=== PATIENT | male | born 1965 | race Two or more races ===

== ENCOUNTER 2020-07-08 07:40 | Outpatient (REF) | payer OTHER, SELFPAY ==
[2020-07-08 08:11] LABS: MANUAL DIFF FLAG NO
[2020-07-08 08:16] LABS: Basophils Absolute Auto 0.1 X10*3/uL (0.0-0.2); Basophils Percent Auto 1.2 % (0-2); Eosinophils Absolute Auto 0.1 X10*3/uL (0.0-0.4); Eosinophils Percent Auto 2.1 % (0-4); Hematocrit 48.1 % (42-52); Hemoglobin 16.3 g/dl (14.0-18.0); Imm Gran Abs Auto 0.01 X10*3/uL (0.00-0.03); Imm Gran Pct Auto 0.2 % (0.0-0.4); Lymphocytes Absolute Auto 2.5 X10*3/uL (1.2-4.9); Lymphocytes Percent Auto 44.3 % (20-40); Mean Corpuscular HGB Conc 33.9 g/dl (31.0-36.0); Mean Corpuscular Hemoglobin 30.8 pg (27.0-33.0); Mean Corpuscular Volume 90.8 fL (80-98); Mean Platelet Volume 9.8 fL (9.4-12.4); Monocytes Absolute Auto 0.6 X10*3/uL (0.1-1.2); Monocytes Percent Auto 9.6 % (2-11); Neutrophils Absolute Auto 2.5 X10*3/uL (2.0-8.3); Neutrophils Percent Auto 42.6 % (45-73); Platelet Count 276 X10*3/uL (160-400); Red Cell Distribution Width 12.1 % (11.0-16.0); White Blood Count 5.7 X10*3/uL (4.8-10.8)
[2020-07-08 08:26] LABS: Estimated Average Glucose 111 mg/dL; Hemoglobin A1c % 5.5 %
[2020-07-08 08:38] LABS: Alanine Aminotransferase 35 U/L (0-40); Albumin Level 4.7 g/dL (3.5-5.0); Alkaline Phosphatase 72 U/L (39-117); Anion Gap 10 (12-20); Aspartate Amino Transferase 33 U/L (5-37); Bilirubin Total 1.2 mg/dL (0.0-1.0); Blood Urea Nitrogen 15 mg/dL (9-16); Carbon Dioxide 29 mmol/L (22-29); Chloride 101 mmol/L (96-108); Cholesterol 137 mg/dL; Estimated Glomerular Filt Rate > 60; Glucose Random 104 mg/dL (60-115); HDL Cholesterol 43 mg/dL; LDL Cholesterol Calculated 83 mg/dl; Potassium 4.1 mmol/l (3.3-5.1); Sodium 136 mmol/L (135-145); Total Protein 7.3 g/dL (6.5-8.0); Triglycerides 55 mg/dL
[2020-07-08 08:58] LABS: Thyroid Stimulating Hormone 1.14 uIU/mL (0.32-4.0)
== END 2020-07-08 07:41 | disposition home or self-care (01) ==
LOC: HO.LAB 07:40
PROVIDERS: Visit Provider Internal Medicine
DX: E78.00 Pure hypercholesterolemia, unspecified (principal); I10 Essential (primary) hypertension; J30.89 Other allergic rhinitis; R73.01 Impaired fasting glucose
CPT/HCPCS: 36415; 80053; 80061; 83036; 84443; 85025

== ENCOUNTER 2020-09-20 10:20 | Outpatient (REF) | payer OTHER, SELFPAY | END 2020-09-20 10:21 | disposition home or self-care (01) | LOC: HO.LAB 10:20 | PROVIDERS: PCP Internal Medicine; Visit Provider Internal Medicine | DX: Z20.822 Contact with and (suspected) exposure to COVID-19 (principal) | CPT/HCPCS: 36415; C9803; U0003; U0005 ==

== ENCOUNTER 2020-12-13 06:26 | Outpatient (REF) | payer OTHER, SELFPAY ==
[2020-12-13 07:01] LABS: Basophils Absolute Auto 0.1 X10*3/uL (0.0-0.2); Basophils Percent Auto 1.4 % (0-2); Eosinophils Absolute Auto 0.2 X10*3/uL (0.0-0.4); Eosinophils Percent Auto 2.7 % (0-4); Hematocrit 45.9 % (42-52); Hemoglobin 15.1 g/dl (14.0-18.0); Imm Gran Abs Auto 0.01 X10*3/uL (0.00-0.03); Imm Gran Pct Auto 0.2 % (0.0-0.4); Lymphocytes Absolute Auto 2.5 X10*3/uL (1.2-4.9); Lymphocytes Percent Auto 44.5 % (20-40); MANUAL DIFF FLAG NO; Mean Corpuscular HGB Conc 32.9 g/dl (31.0-36.0); Mean Corpuscular Hemoglobin 30.3 pg (27.0-33.0); Monocytes Absolute Auto 0.5 X10*3/uL (0.1-1.2); Neutrophils Absolute Auto 2.3 X10*3/uL (2.0-8.3); Neutrophils Percent Auto 42.2 % (45-73); Platelet Count 260 X10*3/uL (160-400); Red Blood Count 4.99 X10*6/uL (4.60-5.80); White Blood Count 5.6 X10*3/uL (4.8-10.8)
[2020-12-13 07:46] LABS: Alanine Aminotransferase 34 U/L (0-40); Albumin Level 4.5 g/dL (3.5-5.0); Alkaline Phosphatase 79 U/L (39-117); Anion Gap 10 (12-20); Aspartate Amino Transferase 29 U/L (5-37); Blood Urea Nitrogen 19 mg/dL (9-16); Calcium 9.1 mg/dL (8.4-10.2); Carbon Dioxide 29 mmol/L (22-29); Chloride 107 mmol/L (96-108); Cholesterol 145 mg/dL; Estimated Glomerular Filt Rate > 60; Glucose Random 115 mg/dL (60-115); HDL Cholesterol 39 mg/dL; LDL Cholesterol Calculated 62 mg/dl; Potassium 4.2 mmol/L (3.3-5.1); Sodium 142 mmol/L (135-145); Total Protein 7.1 g/dL (6.5-8.0); Triglycerides 223 mg/dL
[2020-12-13 08:06] LABS: Thyroid Stimulating Hormone 1.26 uIU/mL (0.32-4.0)
== END 2020-12-13 06:27 | disposition home or self-care (01) ==
LOC: HO.LAB 06:26
PROVIDERS: PCP Internal Medicine; Visit Provider Internal Medicine
DX: E78.00 Pure hypercholesterolemia, unspecified (principal); I10 Essential (primary) hypertension; J30.89 Other allergic rhinitis; R73.01 Impaired fasting glucose
CPT/HCPCS: 36415; 80053; 80061; 84443; 85025

== ENCOUNTER 2020-12-18 13:49 | Outpatient (REF) | payer OTHER, SELFPAY | END 2020-12-18 13:50 | disposition home or self-care (01) | LOC: HO.LAB 13:49 | PROVIDERS: Visit Provider Internal Medicine | DX: Z20.822 Contact with and (suspected) exposure to COVID-19 (principal) | CPT/HCPCS: C9803; U0003; U0005 ==

== ENCOUNTER → 2021-01-09 14:52 | Outpatient (BNVA) | payer OTHER, SELFPAY | PROVIDERS: PCP Internal Medicine; Visit Provider Orthopaedic Surgery | DX: M65.342 Trigger finger, left ring finger (principal); M79.642 Pain in left hand | CPT/HCPCS: 20550; 99202; J1100 ==

== ENCOUNTER 2021-03-03 07:34 | Outpatient (REF) | payer OTHER, SELFPAY ==
[2021-03-03 08:43] LABS: Estimated Average Glucose 114 mg/dL; Hemoglobin A1c % 5.6 %
[2021-03-03 08:45] LABS: Alanine Aminotransferase 26 U/L (0-40); Albumin Level 4.4 g/dL (3.5-5.0); Alkaline Phosphatase 70 U/L (39-117); Anion Gap 11 (12-20); Aspartate Amino Transferase 25 U/L (5-37); Bilirubin Total 1.1 mg/dL (0.0-1.0); Blood Urea Nitrogen 19 mg/dL (9-16); Calcium 9.7 mg/dL (8.4-10.2); Carbon Dioxide 28 mmol/L (22-29); Chloride 104 mmol/L (96-108); Estimated Glomerular Filt Rate > 60; Glucose Random 113 mg/dL (60-115); Potassium 4.2 mmol/L (3.3-5.1); Sodium 139 mmol/L (135-145); Total Protein 7.1 g/dL (6.5-8.0)
[2021-03-05 10:01] LABS: Folate 13.4 ng/mL (> or = 4.0); Vitamin B12 341 pg/mL (200-900)
== END 2021-03-03 07:35 | disposition home or self-care (01) ==
LOC: HO.LAB 07:34
PROVIDERS: PCP Internal Medicine; Visit Provider Internal Medicine
DX: E78.2 Mixed hyperlipidemia (principal); G57.83 Other specified mononeuropathies of bilateral lower limbs; I10 Essential (primary) hypertension; M79.642 Pain in left hand; R73.01 Impaired fasting glucose
CPT/HCPCS: 36415; 80053; 82607; 82746; 83036

== ENCOUNTER 2021-08-15 10:09 | Outpatient (REF) | payer OTHER, SELFPAY | END 2021-08-15 10:10 | disposition home or self-care (01) | LOC: HO.LAB 10:09 | PROVIDERS: Visit Provider Internal Medicine | DX: Z20.822 Contact with and (suspected) exposure to COVID-19 (principal) | CPT/HCPCS: C9803; U0003; U0005 ==

== ENCOUNTER 2021-10-02 10:04 | Outpatient (REF) | payer OTHER, SELFPAY ==
[2021-10-02 12:15] LABS: Thyroid Stimulating Hormone 0.94 uIU/mL (0.32-4.0)
[2021-10-02 12:26] LABS: Alanine Aminotransferase 31 U/L (0-40); Albumin Level 4.2 g/dL (3.5-5.0); Alkaline Phosphatase 77 U/L (39-117); Anion Gap 13 (12-20); Aspartate Amino Transferase 29 U/L (5-37); Bilirubin Total 1.1 mg/dL (0.0-1.0); Blood Urea Nitrogen 15 mg/dL (9-16); Calcium 9.4 mg/dL (8.4-10.2); Carbon Dioxide 26 mmol/L (22-29); Chloride 103 mmol/L (96-108); Cholesterol 123 mg/dL; Estimated Glomerular Filt Rate > 60; Glucose Random 101 mg/dL (60-115); HDL Cholesterol 42 mg/dL; LDL Cholesterol Calculated 66 mg/dl; Potassium 4.6 mmol/L (3.3-5.1); Sodium 137 mmol/L (135-145); Total Protein 7.2 g/dL (6.5-8.0); Triglycerides 75 mg/dL
== END 2021-10-02 10:05 | disposition home or self-care (01) ==
LOC: HO.LAB 10:04
PROVIDERS: PCP Internal Medicine; Visit Provider Internal Medicine
DX: Z00.01 Encounter for general adult medical examination with abnormal findings (principal); E78.2 Mixed hyperlipidemia; F10.10 Alcohol abuse, uncomplicated; I10 Essential (primary) hypertension; K59.00 Constipation, unspecified
CPT/HCPCS: 36415; 80053; 80061; 84443

== ENCOUNTER 2022-06-28 05:57 | Outpatient (REF) | payer OTHER, SELFPAY ==
[2022-06-28 06:11] LABS: MANUAL DIFF FLAG NO
[2022-06-28 07:42] LABS: Basophils Absolute Auto 0.1 X10*3/uL (0.0-0.2); Basophils Percent Auto 1.3 % (0-2); Eosinophils Absolute Auto 0.2 X10*3/uL (0.0-0.4); Eosinophils Percent Auto 3.1 % (0-4); Hematocrit 46.1 % (42.0-52.0); Hemoglobin 15.7 g/dl (14.0-18.0); Imm Gran Abs Auto 0.02 X10*3/uL (0.00-0.03); Imm Gran Pct Auto 0.4 % (0.0-0.4); Lymphocytes Absolute Auto 2.4 X10*3/uL (1.2-4.9); Lymphocytes Percent Auto 44.1 % (20-40); Mean Corpuscular HGB Conc 34.1 g/dl (31.0-36.0); Mean Corpuscular Hemoglobin 30.5 pg (27.0-33.0); Mean Corpuscular Volume 89.5 fL (80.0-98.0); Monocytes Absolute Auto 0.5 X10*3/uL (0.1-1.2); Monocytes Percent Auto 9.7 % (2-11); Neutrophils Absolute Auto 2.3 x10*3/uL (2.0-8.3); Neutrophils Percent Auto 41.4 % (45-73); Platelet Count 291 X10*3/uL (160-400); Red Blood Count 5.15 X10*6/uL (4.60-5.80); Red Cell Distribution Width 12.4 % (11.0-16.0); White Blood Count 5.5 X10*3/uL (4.8-10.8)
[2022-06-28 07:57] LABS: Alanine Aminotransferase 35 U/L (0-40); Albumin Level 4.6 g/dL (3.5-5.0); Alkaline Phosphatase 64 U/L (39-117); Anion Gap 11 (12-20); Aspartate Amino Transferase 32 U/L (5-37); Bilirubin Total 1.5 mg/dL (0.0-1.0); Blood Urea Nitrogen 15 mg/dL (9-16); Calcium 9.9 mg/dL (8.4-10.2); Carbon Dioxide 31 mmol/L (22-29); Chloride 103 mmol/L (96-108); Cholesterol 122 mg/dL; Estimated Glomerular Filt Rate > 60; Glucose Random 118 mg/dL (60-115); HDL Cholesterol 37 mg/dL; LDL Cholesterol Calculated 71 mg/dl; Potassium 4.4 mmol/L (3.3-5.1); Sodium 141 mmol/L (135-145); Total Protein 7.2 g/dL (6.5-8.0); Triglycerides 74 mg/dL
== END 2022-06-28 05:58 | disposition home or self-care (01) ==
LOC: HO.LAB 05:57
PROVIDERS: PCP Internal Medicine; Visit Provider Internal Medicine
DX: I10 Essential (primary) hypertension (principal); E78.2 Mixed hyperlipidemia; F10.10 Alcohol abuse, uncomplicated; Z68.35 Body mass index [BMI] 35.0-35.9, adult
CPT/HCPCS: 36415; 80053; 80061; 85025

== ENCOUNTER 2022-12-02 16:39 | Outpatient (REF) | payer OTHER, SELFPAY ==
--- NOTE | ~2022-12-02 | XR_ITS ---
EXAMINATION: XR RIBS, RIGHT. Chest. CLINICAL INFORMATION: Pain. COMPARISON: None available. TECHNIQUE: 3 views of the right ribs were obtained. Chest one view FINDINGS: Chest: Lungs are clear. No consolidation, pneumothorax, or pleural effusion. The cardiomediastinal silhouette and pulmonary vasculature are normal. Right RIBS: Osseous structures are unremarkable. Ribs are intact. No fractures are identified. XR/XR ribs RT min 3V w CXR1V IMPRESSION: 1. Unremarkable chest exam. 2. Unremarkable right rib exam.
== END 2022-12-02 16:40 | disposition home or self-care (01) ==
LOC: HO.XRAY 16:39
PROVIDERS: PCP Internal Medicine; Visit Provider Internal Medicine
DX: S20.211A Contusion of right front wall of thorax, initial encounter (principal); X58.XXXA Exposure to other specified factors, initial encounter; Y93.9 Activity, unspecified; Y92.9 Unspecified place or not applicable; Y99.9 Unspecified external cause status
CPT/HCPCS: 71101

== ENCOUNTER 2022-12-28 06:58 | Outpatient (REF) | payer OTHER, SELFPAY ==
[2022-12-28 09:15] LABS: Estimated Average Glucose 108 mg/dL; Hemoglobin A1c % 5.4 %
[2022-12-28 09:45] LABS: Alanine Aminotransferase 32 U/L (0-40); Albumin Level 4.4 g/dL (3.5-5.0); Alkaline Phosphatase 72 U/L (39-117); Anion Gap 13 (12-20); Aspartate Amino Transferase 29 U/L (5-37); Bilirubin Total 1.7 mg/dL (0.0-1.0); Blood Urea Nitrogen 17 mg/dL (9-16); Calcium 9.3 mg/dL (8.4-10.2); Carbon Dioxide 25 mmol/L (22-29); Chloride 107 mmol/L (96-108); Estimated Glomerular Filt Rate > 60; Glucose Random 106 mg/dL (60-115); Sodium 141 mmol/L (135-145); Total Protein 6.8 g/dL (6.5-8.0)
[2022-12-28 09:58] LABS: Folate 11.8 ng/mL (> or = 4.0); Prostate Specific Antigen 1.14 ng/mL (<0.05-4.0); Vitamin B12 363 pg/mL (200-900)
== END 2022-12-28 06:59 | disposition home or self-care (01) ==
LOC: HO.LAB 06:58
PROVIDERS: PCP Internal Medicine; Visit Provider Internal Medicine
DX: Z00.00 Encounter for general adult medical examination without abnormal findings (principal); Z12.5 Encounter for screening for malignant neoplasm of prostate; R73.01 Impaired fasting glucose; F10.10 Alcohol abuse, uncomplicated; E78.2 Mixed hyperlipidemia; G62.9 Polyneuropathy, unspecified
CPT/HCPCS: 36415; 80053; 82607; 82746; 83036; 84153

== ENCOUNTER 2023-01-06 16:36 | Outpatient (REF) | payer OTHER, SELFPAY ==
--- NOTE | ~2023-01-06 | XR_ITS ---
EXAMINATION: XR WRIST, RIGHT CLINICAL INFORMATION: Fall. COMPARISON: None available. TECHNIQUE: Four views of the right wrist. FINDINGS: Osseous fragments adjacent to the dorsal surface of the wrist on the lateral view suspicious for a triquetral fracture. No discrete additional fracture or malalignment. Mild joint space narrowing and subcortical sclerosis of the radiocarpal joint as well as first metacarpophalangeal joint. No unexpected radiopaque foreign bodies. XR/XR wrist RT 2V IMPRESSION: 1. Findings suspicious for a triquetral fracture. 2. 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
== END 2023-01-06 16:37 | disposition home or self-care (01) ==
LOC: HO.XRAY 16:36
PROVIDERS: PCP Internal Medicine; Visit Provider Internal Medicine
DX: M25.531 Pain in right wrist (principal); Z91.81 History of falling
CPT/HCPCS: 73100

== ENCOUNTER → 2023-02-04 14:38 | Outpatient (BNVA) | payer OTHER, SELFPAY | PROVIDERS: PCP Internal Medicine; Visit Provider Orthopaedic Surgery | DX: S62.111A Displaced fracture of triquetrum [cuneiform] bone, right wrist, initial encounter for closed fracture (principal) | CPT/HCPCS: 99212 ==

== ENCOUNTER 2023-03-11 14:21 | Outpatient (AMB) | payer OTHER, SELFPAY ==
[2023-03-11 15:20] VITALS: BMI 34.2
--- NOTE | 2023-03-11 15:20 | A.OFFVIS_ITS ---
Intake Vital Signs 03/11/23 15:20 Height 5 ft 6 in Weight 212 lb BMI 34.2 Intake Visit Reasons: ov- Triquetral fx of right hand Intake Note: Mohit 57 y r old male presents today for his ROM check of lhis Right dorsal Triquetral avulsion fracture From a fall, DOI: 11/2022. States he is attending O.T and is having improvement. EMG is schedule for 03/26/23. Allergies SEAFOOD Allergy (Unknown, Uncoded 03/11/23 15:22) ANAPHYLAXIS HPI ov- Triquetral fx of right hand HPI Details Mohit is a 57 year old right hand dominant man who presents for a ROM check of his right triquetral avulsion fracture. This occurred early 11/2022. He says he did not seek medical treatment following his injury. He says he has been working with OT hand therapy on ROM and he is making improvements. He continues to have pain with some activity. 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 He says his numbness has been present for many years. He says his numbness is constant in his left ring and small fingers, and occasionally in his right small finger. He is scheduled for a NCS on 03/26/23 He has a Hx of a right carpal tunnel release by Dr. Leyva, DOS: 03/04/18. He reports having multiple pinched nerves in his neck & back, as well as? C-sp ine surgeries in the past. He says he had a brick wall fall on top of him and his daughter ~15-20 years ago, which led to his nerve issues and his surgeries.? 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 Review of Systems Const All systems reviewed & are unremarkable except as noted in HPI and below Physical Exam Vital Signs: BMI result Body Mass Index 34.2 Const General: no acute distress and alert Orientation/consciousness: patient oriented x3 Neuro General: patient oriented x3 Extrem Other: Evaluation of Right Upper Extremity: The patient is alert, oriented, and in no acute distress Neuro: Median, Ulnar, Radial nerves motor and sensory intact and sensation is normal to the tips of all digits No thenar or intrinsic wasting Good APB muscle belly firing and good finger cross Vascular: Cap refill brisk Mild swelling over the dorsal aspect of his right wrist. He is tender over the dorsal aspect of the right triquetrum, and I believe I can palpate the bony fragment. He has active wrist extension to ~45 and active wrist flexion to ~50 degrees, limited by discomfort. Full prono-supination without pain. He can make a tight fist with relatively good strength. Radiographs: 3 views of the right hand were taken and viewed by me today in clinic. On the lateral view there is evidence of a dorsal avulsion fracture of the triquetrum. Psych Appearance: grossly normal Affect: normal affect Attitude: cooperative Assessment & Plan Assessment & Plan (1) Fracture of triquetrum of right wrist: Code(s): S62.111A - Displaced fracture of triquetrum [cuneiform] bone, right wrist, initial encounter for closed fracture (2) Bilateral hand numbness: Code(s): R20.0 - Anesthesia of skin Plan Assessment & Plan: 1. 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 Bilateral hand numbness Primarily in the small fingers His NCS is scheduled for 03/26/23 He has a Hx of multiple pinched nerves and C-spine surgery in the past after having a brick wall fall onto him ~15-20 years ago He will follow up when completed for review 3. History of right carpal tunnel release Done by Dr. Leyva, DOS: 03/04/18 Scribed for Laurence Archuleta MD by Mal Friend, medical affairs specialist, on 03/11/23 at 3:40 PM, EST. Orders: Orders XR wrist RT w scaphoid Today M25.531 - Pain in right wrist Coding Level of Care Code Global (10784) Diagnoses Fracture of triquetrum of right wrist S62.111A Bilateral hand numbness R20.0
== END 2023-03-11 16:15 | disposition home or self-care (01) ==
PROVIDERS: PCP Internal Medicine; Visit Provider Orthopaedic Surgery
DX: S62.111A Displaced fracture of triquetrum [cuneiform] bone, right wrist, initial encounter for closed fracture (principal)
CPT/HCPCS: 99213

== ENCOUNTER 2023-03-11 14:21 | Outpatient (REF) | payer OTHER, SELFPAY ==
--- NOTE | ~2023-03-11 | XR_ITS ---
EXAMINATION: XR WRIST, RIGHT CLINICAL INFORMATION: Pain. COMPARISON: Radiographs dated 01/04/2023. TECHNIQUE: PA, lateral, and oblique views of the right wrist. FINDINGS: Bony alignment and mineralization are normal. Small osseous fragments are redemonstrated within the dorsal wrist soft tissues, suspicious for triquetral fracture fragments. There is diminished adjacent soft tissue swelling. No dislocation is seen. There is no abnormal bone erosion. No soft tissue gas or foreign body is seen. XR/XR wrist RT w scaphoid IMPRESSION: There are stable fracture fragments noted in the dorsal right wrist, suspicious for a triquetral fracture. There is diminished adjacent soft tissue swelling.
== END 2023-03-11 14:22 | disposition home or self-care (01) ==
LOC: HO.HOSX 14:21
PROVIDERS: PCP Internal Medicine; Visit Provider Orthopaedic Surgery
DX: S62.111D Displaced fracture of triquetrum [cuneiform] bone, right wrist, subsequent encounter for fracture with routine healing (principal); R20.0 Anesthesia of skin
CPT/HCPCS: 73110

== ENCOUNTER 2023-03-19 15:30 | Outpatient (RCR) | payer OTHER, SELFPAY ==
--- NOTE | 2023-02-24 16:19 | MHC.OT.EP ---
[address] [phone] Occupational Therapy Plan of Care Patient Name: Mohit England Date of Evaluation: 02/24/23 Diagnosis: Right triquetral avulsion fracture November 2022 Pain Location: Right dorsal ulnar wrist ache, sharp Pain Score: 8 Pain Scale Used: Numeric (0 - 10) Aggravating Factors: Lifting something heavy, gripping with right hand Alleviating Factors: Assessment: Pt is a 57 yo male with a recent right hand triquetral fracture due to a fall while on vacation in [place] this past November. XR taken in December shows right triquetral fracture and mild OA for right radial carpal jt and right 1st MCP jt Pt seen by Dr Whitten and refrerred to OT for fracture and scheduled for NCS on 04/15/23 due to long ho bilateral hand paresthesias (ulnar hands) . Pt is s/p C spine surgery and right CTR 2017. 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 Pt will benefit from OT to improve right wrist pain ,ROM and function Frequency and Duration: The patient will be seen 2x wk x 5 wks Short Term Goals: Demo indep with HEP Demo compliance with jt protection as able Wrist ext to 60 deg Indep with thermal modalities for pain. 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 Thank you once again for your referral.
--- NOTE | 2023-03-19 16:17 | MHC.OT.DC ---
[address] [phone] F: [phone] Occupational Therapy Discharge Note Patient Name: Mohit England Provider: Laurence Archuleta Diagnosis: Right triquetral avulsion fracture November 2022 Date of Surgery: Date of Evaluation: 02/24/23 Date of Discharge: 03/19/23 Treatments to Date: 6 Cancellations to Date: 0 No Shows to Date: 0 Discharge Status: Achieved Goals Improved Function Independent with HEP Recommend MD Follow-up Discharge Summary: Dec wrist ROM, dorsal edema and pain is improved with occasional discomfort at dorsal wrist avoiding lifting ladders and full weight bearing on his hand. Pt has modified work tasks with little difficulty to protect his wrist. He is scheduled for a NCS next week and will follow up with Dr Archuleta the following week. Goals met for right wrist. Electronically Signed By: Rosalinda Parks OT CHT CLT Reviewed/agree with student documentation: Therapist: Please Sign and return to therapist, thank you for your referral.
== END 2023-03-19 16:17 | disposition home or self-care (01) ==
LOC: HO.OT 15:30
PROVIDERS: PCP Internal Medicine; Visit Provider Orthopaedic Surgery
DX: S62.111A Displaced fracture of triquetrum [cuneiform] bone, right wrist, initial encounter for closed fracture (principal)
CPT/HCPCS: 97033; 97110; 97140; 97166; 97530

== ENCOUNTER 2023-03-26 08:27 | Outpatient (REF) | payer OTHER, SELFPAY ==
--- NOTE | 2023-03-26 08:29 | EMG_ITS ---
Please see scanned EMG / Nerve Conduction Report. MTDD
== END 2023-03-26 08:28 | disposition home or self-care (01) ==
LOC: HO.NEURO 08:27
PROVIDERS: PCP Internal Medicine; Visit Provider Orthopaedic Surgery
DX: R20.0 Anesthesia of skin (principal); R20.2 Paresthesia of skin
CPT/HCPCS: 95860; 95885; 95907; 95913

== ENCOUNTER 2023-04-08 08:35 | Outpatient (AMB) | payer OTHER, SELFPAY ==
[2023-04-08 08:36] VITALS: BMI 34.2
--- NOTE | 2023-04-08 08:36 | MHC.OFFVIS ---
Intake Vital Signs 04/08/23 08:36 Height 5 ft 6 in Weight 212 lb BMI 34.2 Intake Visit Reasons: O/V EMG rev B/L hand Intake Note: Mohit 57 yr old right hand dominant male presents today for his EMG review of bilateral hands. States his right hand is currently worse and would like to sign up for right hand carpal tunnel release. Hx of right hand CTR in 2018. Patient had a recent EMG and states he would like to have cubital tunnel release. Allergies SEAFOOD Allergy (Unknown, Uncoded 04/08/23 08:38) ANAPHYLAXIS HPI O/V EMG rev B/L hand HPI Details Mohit is a 57 year old right hand dominant man who presents for a NCS review of his bilateral hand numbness. He continues to have bilateral hand numbness, primarily in the small fingers, R>L, along with a burning pain that radiates from his right small finger into the volar aspect of his forearm and elbow. He says his numbness has been present for many years. He also complains of pain in the anterior aspect of his shoulder He has a Hx of a right carpal tunnel release by Dr. Leyva, DOS: 03/04/18. 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 He says he only has mild numbness occasionally in the median nerve distribution of his hand, but it is much improved since his surgery. He reports having multiple pinched nerves in his neck & back, as well as?C-spine surgeries in the past. He says he had a brick wall fall on top of him and his daughter ~15-20 years ago, which led to his nerve issues and his surgeries. He has a hx of a right triquetral avulsion fracture, DOI: early 11/2022. He says he has finished working with OT hand therapy on his ROM, and continues to perform some exercises at home. 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 Of note: He reports being called by this office sometime last week and told he was scheduled for surgery on 04/09/23 to address his carpal/cubital tunnel syndrome. He says he was told to not eat or drink anything in preparation for a procedure tomorrow at 1:00 pm. After clarification it seems he was scheduled for a clinic appointment tomorrow which was moved to this appointment. 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 Normal sensation to the median nerve distribution No thenar or intrinsic wasting Good APB muscle belly firing and good finger cross Vascular: Cap refill brisk No swelling over the dorsal aspect of his right wrist. He has active wrist extension to ~60 and active wrist flexion to ~70 degrees Full & symmetrical prono-supination without pain. He can make a tight fist with relatively good strength. 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 Rico 03/26/23 Psych Appearance: grossly normal Affect: normal affect Attitude: cooperative Assessment & Plan Assessment & Plan (1) Fracture of triquetrum of right wrist: Code(s): S62.111A - Displaced fracture of triquetrum [cuneiform] bone, right wrist, initial encounter for closed fracture (2) Carpal tunnel syndrome of right wrist: Code(s): G56.01 - Carpal tunnel syndrome, right upper limb (3) Carpal tunnel syndrome of left wrist: Code(s): G56.02 - Carpal tunnel syndrome, left upper limb (4) Cubital tunnel syndrome on right: Code(s): G56.21 - Lesion of ulnar nerve, right upper limb Plan Assessment & Plan: 1. Right Cubital tunnel syndrome, mild NCS reports compression palsy of the ulnar nerve at the wrist I explained that his symptoms are more likely to be caused by the nerve at the elbow, but there is a slight chance he may require surgery to his wrist if his symptoms do not improve Symptoms intermittent, but daily I educated him about this condition I discussed operative and non-operative treatment options The patient would like to proceed with surgery The risks and benefits of operative treatment were discussed with the patient and the patient wishes to proceed with surgery. These risks include, but are not limited to risk of damage to blood vessels, nerves, tendons, infection, recurrence, incomplete relief of preoperative symptoms, persistent pain, possible need for further surgery and the risks associated with regional blocks and anesthesia. The plan is to take the patient to the operating room sometime in the next few weeks for the following procedures: 1. Right cubital tunnel release vs transposition, under general All of the preoperative paperwork including the consent was filled out today. All the patient's questions were answered. The patient understands that they will be contacted by our animal daycare provider soon to schedule this procedure He denies Diabetes, blood thinners, heart, lung, kidney issues He reports having asthma, which is well-controlled He has some pain in the volar aspect of his forearm & tenderness over the flexor origin at medial epicondyle. I explained this surgery is not likely to improve this pain. 2. Right carpal tunnel syndrome, mild, recurrent S/P release Done by Dr. Leyva, DOS: 03/04/18 Pre-operatively with dense numbness, and significant improvement after surgery No complaints of numbness at this time Nerve conduction study findings Most likely residual following his previous carpal tunnel release 3. Left carpal tunnel syndrome, mild No complaints at this time 4. Left hand numbness In the ulnar nerve distribution No evidence of cubital tunnel or cervical radiculopathy on NCS from 03/26/23 He has a Hx of multiple pinched nerves and C-spine surgery in the past after having a brick wall fall onto him ~15-20 years ago 5. Right dorsal Triquetral avulsion fracture From a fall, DOI: 11/2022 He has finished OT hand therapy and continues to perform exercises at home Scribed for Laurence Archuleta MD by Mal Friend, certified medical dosimetrist, on 04/08/23 at 9:20 AM, EST. Coding Level of Care Code Est Pt Level 4 (74914) Diagnoses Fracture of triquetrum of right wrist S62.111A Carpal tunnel syndrome of right wrist G56.01 Carpal tunnel syndrome of left wrist G56.02 Cubital tunnel syndrome on right G56.21
== END 2023-04-08 09:39 | disposition home or self-care (01) ==
LOC: HO.HOS 08:35
PROVIDERS: PCP Internal Medicine; Visit Provider Orthopaedic Surgery
DX: G56.21 Lesion of ulnar nerve, right upper limb (principal); S62.111A Displaced fracture of triquetrum [cuneiform] bone, right wrist, initial encounter for closed fracture; G56.01 Carpal tunnel syndrome, right upper limb; G56.02 Carpal tunnel syndrome, left upper limb
CPT/HCPCS: 99214

== ENCOUNTER → 2023-04-08 08:35 | Outpatient (BNVA) | payer OTHER, SELFPAY | PROVIDERS: PCP Internal Medicine; Visit Provider Orthopaedic Surgery | DX: G56.03 Carpal tunnel syndrome, bilateral upper limbs (principal); G56.21 Lesion of ulnar nerve, right upper limb; S62.111D Displaced fracture of triquetrum [cuneiform] bone, right wrist, subsequent encounter for fracture with routine healing; Z86.69 Personal history of other diseases of the nervous system and sense organs | CPT/HCPCS: 99212 ==

== ENCOUNTER 2023-04-28 05:53 | Day surgery (SDC) | payer OTHER, SELFPAY ==
[2023-04-23 16:21] VITALS: BMI 34.2
--- NOTE | 2023-04-25 09:58 | P.CONAN_ITS ---
Documented by User: Pauline Chopra NP 04/25/23 09:59 HPI - Anesthesia Eval Consult details Narrative: 57yo M for Right Cubital Tunnel Release VS transposition PMF Active Problems Active Problems: All Active Problems (Updated 04/08/23 @ 09:15 by Mal Friend) Cubital tunnel syndrome on right (Acute) Carpal tunnel syndrome of left wrist (Acute) Carpal tunnel syndrome of right wrist (Acute) Bilateral hand numbness (Acute) Fracture of triquetrum of right wrist (Acute) Contusion of rib on right side (Acute) Left hand pain (Acute) Trigger finger, left ring finger (Acute) Past Medical History Medical History (Updated 04/08/23 @ 09:15 by Mal Friend) High blood pressure Surgical History Surgical History (Updated 04/28/23 @ 06:13 by Ramona Kelly RN) History of carpal tunnel surgery of right wrist History of neck surgery Social History Social History Patient Tobacco Use Status: Never used Tobacco Second Hand Smoke Exposure: No Current occupational status: employed 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 Meds Allergies Allergy/AdvReac Type Severity Reaction Status Date / Time SEAFOOD Allergy Unknown ANAPHYLAXIS Uncoded 04/08/23 08:38 Home Medications Medication Instructions Recorded Confirmed Last Taken Type amlodipine 10 mg tablet 10 mg PO DAILY 12/02/22 04/28/23 04/28/23 History atorvastatin 20 mg tablet 20 mg PO BEDTIME 12/02/22 04/28/23 04/27/23 History gabapentin 100 mg capsule 100 mg PO BEDTIME 12/02/22 04/28/23 04/27/23 History hydrochlorothiazide 25 mg tablet 25 mg PO DAILY 12/02/22 04/28/23 04/27/23 History lisinopril 30 mg tablet 30 mg PO DAILY 12/02/22 04/28/23 04/27/23 History Exam Exam Date and Time: April 25, 202358 Height,Weight and Vital Signs: Height 5 ft 6 in Weight 96.162 kg Pertinent Lab Results Pertinent Lab Results: Laboratory Tests 06/28/22 06/28/22 12/28/22 06:10 06:10 07:08 WBC 5.5 Hgb 15.7 Hct 46.1 Plt Count 291 Sodium Potassium 4.0 Chloride Carbon Dioxide BUN Creatinine 12/28/22 12/28/22 07:08 07:08 WBC Hgb Hct Plt Count Sodium 141 Potassium Chloride 107 Carbon Dioxide 25 BUN 17 H Creatinine 0.95 Assessment and Plan Assessment Anesthesia Assessment: Chart Reviewed Documented by User: Omid Alonso MD 04/28/23 18:18 [facility] Past Medical History Medical History (Updated 04/08/23 @ 09:15 by Mal Friend) High blood pressure Functional capacity: independent ambulation Family History Family history of problems with anesthesia: No Surgical History Surgical History (Updated 04/28/23 @ 06:13 by Ramona Kelly RN) History of carpal tunnel surgery of right wrist History of neck surgery History of Problems with Anesthesia: No Social History Social History Patient Tobacco Use Status: Never used Tobacco Second Hand Smoke Exposure: No Current occupational status: employed 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 Meds Allergies Allergy/AdvReac Type Severity Reaction Status Date / Time SEAFOOD Allergy Unknown ANAPHYLAXIS Uncoded 04/08/23 08:38 Home Medications Medication Instructions Recorded Confirmed Last Taken Type amlodipine 10 mg tablet 10 mg PO DAILY 12/02/22 04/28/23 04/28/23 History atorvastatin 20 mg tablet 20 mg PO BEDTIME 12/02/22 04/28/23 04/27/23 History gabapentin 100 mg capsule 100 mg PO BEDTIME 12/02/22 04/28/23 04/27/23 History hydrochlorothiazide 25 mg tablet 25 mg PO DAILY 12/02/22 04/28/23 04/27/23 History lisinopril 30 mg tablet 30 mg PO DAILY 12/02/22 04/28/23 04/27/23 History Exam Airway Mallampati Class: IV Loose/Missing/Broken Teeth: Yes Assessment and Plan Assessment Anesthesia Assessment: Anesthesia Plan Discussed Final Anesthetic Review Family History of Problems with Anesthesia: No History of Problems with Anesthesia: No NPO: Yes ASA Class: II Final Preanesthetic Review: Meds/Allgs Chart Reviewed, Consent Obtained/Reviewed and Anes Risks/Benef Reviewed Patient Risk: Intermediate Procedure Risk: Intermediate Anesthetic Plan Anesthetic Plan: GA and Agree w/ Assess. and Plan Disposition: Standard PACU
[2023-04-28 06:28] VITALS: BP 119/76; PULSE 60; RESP 16; TEMP 36.5; O2SAT 97
[2023-04-28] MEDS: Lactated Ringers 1,000 ML 100 ML IVCONT (06:33)
--- NOTE | 2023-04-28 07:58 | P.OP_ITS ---
Operative Note Operative Note Date of Service: 04/28/23 Narrative: Operative Note Narrative: Preop diagnosis: 1. right Cubital tunnel syndrome Postop diagnosis: Same Procedure: 1. Right Cubital Tunnel Release, and anterior transposition Surgeon: Laurence Archuleta MD Anesthesia: General Anesthesia Findings: Thickening and fibrosis about the ulnar nerve at the cubital tunnel Implants: none Tourniquet time: 48 minutes EBL: 5.0 ml Specimen: none Drains: None Complications: None Disposition: Brought to the recovery room in stable condition Plan: Follow-up in 10-14 days for wound check, and suture removal Indications: The patient is 57 years old with right cubital tunnel syndrome with some persistent numbness in the small finger . The risks and benefits of operative treatment, including but not limited to risk of damage to blood ves sels, nerves, tendons, infection, recurrence, persistent pain or numbness, incomplete resolution of preoperative symptoms, or need for further surgery were discussed with the patient and they wished to proceed with surgery. Procedure: Once consent was obtained patient was brought back to the operating suite and placed in the operating table in a supine position. Perioperative antibiotics and anesthesia was administered by the anesthesia team. The limb was prepped and draped in a standard surgical fashion, and a sterile tourniquet applied to the proximal aspect of the right upper extremity. The limb was elevated exsanguinated with Esmarch bandage and the tourniquet inflated to 250 mm of mercury for a total tourniquet time of 48 minutes. A 6 cm gently curved but longitudinally oriented incision was made centered over the cubital tunnel of the right upper extremity. Incision was made through the skin to the subcutaneous tissues using a # 15 Blade. I then dissected down to the level of the medial epicondyle and the cubital tunnel using tenotomy scissors. Care was taken to protect the lateral antebrachial cutaneous nerve. The ulnar nerve was identified just posterior to the medial intermuscular septum. The ulnar nerve was released in a proximal to distal direction using tenotomy in iris scissors while directly visualizing and protecting the ulnar nerve. Thickening and fibrosis was appreciated about the ulnar nerve as it passed through the cubital tunnel. The ulnar nerve was assessed as I passed the elbow through full flexion and extension and was found to subluxed anterior to the groove, overthe medial epicondyle. As the ulnar nerve appeared to subluxate over the medial epicondyle, the decision was made to proceed with an anterior ulnar nerve transposition. The subcutaneous tissue was carefully freed from the fascia anterior to the medial epicondyle creating an appropriate bed for the ulnar nerve transposition. A small vessel loop was passed behind the ulnar nerve to help facilitate its mobilization. The ulnar nerve was then freed and carefully transposed anterior to the medial epicondyle. Some of the subcutaneous tissue in the anterior flap was carefully secured to the fascia about the medial epicondyle using some 4-0 Vicryl suture material. This created a sling to prevent posterior subluxation of the ulnar nerve. The elbow was brought through flexion and extension and the ulnar nerve was evaluated in its transposition site and found to have good ability to glide and to be free from undo pressure from the anterior sling. At this point the tourniquet was deflated and hemostasis obtained with a brief period of local pressure and bipolar electrocautery. The wound was copiously irrigated with normal saline. The subcutaneous layer was closed with 4-0 Vicryl suture, and the skin edges were reapproximated with 5-0 nylon suture. The wound was infiltrated with some 1% lidocaine with epinephrinefor postop pain control and sterile dressings and a posterior splint was applied. The patient appears to have tolerated the procedure well and with no complications. All digits were well vascularized conclusion of the case.
--- NOTE | 2023-04-28 07:58 | MHC.SHP ---
Pre-Procedural Eval Section A Date of Service: 04/28/23 The patient is an INPATIENT: No Changes since office visit: No Cold of Flu in the past 2 weeks, No New Medical Problems, No Changes in Medication and No Patient answered all questions The History & Physical has been completed within 30 days and I have reviewed it.: Yes Section B Chief Complaint: Lesion of ulnar nerve, right upper limb Allergies: Allergies Allergy/AdvReac Type Severity Reaction Status Date / Time SEAFOOD Allergy Unknown ANAPHYLAXIS Uncoded 04/08/23 08:38 Plan I have reviewed the history and physical and performed a pertinent physical examination on my patient. No changes have occurred unless specified. Time Spent With Patient Time: Total time managing care of this patient today ____ minutes.
[2023-04-28 09:34] VITALS: BP 85/30; PULSE 96; RESP 16; TEMP 37.1; O2SAT 97
[2023-04-28 09:39] VITALS: BP 96/36; PULSE 94; RESP 16; O2SAT 97
[2023-04-28 09:44] VITALS: BP 112/67; PULSE 94; RESP 16; O2SAT 93
[2023-04-28 09:49] VITALS: BP 120/67; PULSE 92; RESP 16; O2SAT 95
[2023-04-28 10:04] VITALS: BP 115/59; PULSE 92; RESP 18; TEMP 36.3; O2SAT 95
== END 2023-04-28 10:30 | disposition home or self-care (01) ==
PROVIDERS: PCP Internal Medicine; Visit Provider Orthopaedic Surgery
PROC: (CPT 64718; principal; 2023-04-28 07:30)
DX: G56.21 Lesion of ulnar nerve, right upper limb (principal); R20.0 Anesthesia of skin; Z87.81 Personal history of (healed) traumatic fracture; I10 Essential (primary) hypertension; Z91.81 History of falling; Z79.899 Other long term (current) drug therapy; Z98.890 Other specified postprocedural states
CPT/HCPCS: 64718; J0690; J1100; J2250; J2371; J2405; J3010

== ENCOUNTER → 2023-04-28 05:53 | Outpatient (BNV) | payer OTHER, SELFPAY | PROVIDERS: PCP Internal Medicine; Visit Provider Orthopaedic Surgery | DX: G56.21 Lesion of ulnar nerve, right upper limb (principal) | CPT/HCPCS: 64718 ==

== ENCOUNTER 2023-05-13 14:08 | Outpatient (AMB) | payer OTHER, SELFPAY ==
--- NOTE | 2023-05-13 13:41 | A.OFFVIS_ITS ---
Intake Intake Visit Reasons: PO - Rt Cubital Tunnel 04/28/23 AR Intake Note: This is a 57 year old male who presents for a right cubital tunnel release on 04/28/23 with AR. The patient reports increased pain with movement. He reports numbness and tingling in his 4th and 5th finger. Allergies SEAFOOD Allergy (Unknown, Uncoded 05/13/23 15:18) ANAPHYLAXIS Medication List - Last Reconciled 05/13/23 by Tova Garcia, SEBASTIAN amlodipine 10 mg PO DAILY atorvastatin 20 mg PO BEDTIME cyclobenzaprine 10 mg PO BEDTIME gabapentin 100 mg PO BEDTIME hydrochlorothiazide 25 mg PO DAILY lisinopril 30 mg PO DAILY meloxicam 15 mg PO DAILY oxycodone-acetaminophen 5-325 mg 1 tab PO Q6H PRN HPI PO - Rt Cubital Tunnel 04/28/23 AR HPI Details Mohit is a 57 year old right hand dominant man who presents S/P right cubital tunnel release, DOS: 04/28/23 He reports some improvement and the numbness and tingling in his right ring & small fingers compared with before surgery. He denies having pain with elbow range of motion. 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 Leyva, DOS: 03/04/18. 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 He says he only has mild numbness occasionally in the median nerve distribution of his hand, but it is much improved since his surgery. He reports having multiple pinched nerves in his neck & back, as well as?C-spine surgeries in the past. He says he had a brick wall fall on top of him and his daughter ~15-20 years ago, which led to his nerve issues and his surgeries. 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 He has some mild erythema about the incision site. Sutures removed and Steri-Strips applied Good active flexion and extension at the elbow without pain. He can make a fist and extend all his digits No locking or catching Sensation is improved but not yet normal in the ulnar nerve distribution Good ABduction & Adduction Good finger cross Cap refill is brisk Nerve Conduction Study: Impression: Mild bilateral carpal tunnel syndrome Mild compression palsy of the right ulnar nerve at wrist Normal MG of the right C5-T1 innervated muscles Dr. Rico 03/26/23 Psych Appearance: grossly normal Affect: normal affect Attitude: cooperative Assessment & Plan Assessment & Plan (1) Fracture of triquetrum of right wrist: Code(s): S62.111A - Displaced fracture of triquetrum [cuneiform] bone, right wrist, initial encounter for closed fracture (2) Carpal tunnel syndrome of right wrist: Code(s): G56.01 - Carpal tunnel syndrome, right upper limb (3) Carpal tunnel syndrome of left wrist: Code(s): G56.02 - Carpal tunnel syndrome, left upper limb (4) Cubital tunnel syndrome on right: Code(s): G56.21 - Lesion of ulnar nerve, right upper limb Plan Assessment & Plan: 1. Right Cubital tunnel syndrome, S/P release & anterior transposition DOS: 04/28/23 NCS reports compression palsy of the ulnar nerve at the wrist Now with improved sensation to the ring and small fingers The patient appears to be doing well post-operatively I educated him about the post-operative course I explained the signs and symptoms of infection, if the patient develops any new or worsening erythema, drainage, pain, or warmth they should contact the clinic or attend the ED. Did have a small amount of erythema right at the incision site. This could be normal healing, however Out of an abundance of caution I placed him on a 7-day course of PO Augmentin He was given a sort ulises wrap to wear for when out of the house for the next few weeks, particularly when at work I discussed activity modifications, he is to lift nothing heavier than a cellphone for the next two weeks He will perform gentle ROM exercises at home He should avoid any underwater activities for the next 5 days He should gently massage about the incision site to reduce the risk of hypersensitivity He was given a note for work to return on 05/14/23, restricting him to light duty for the next 4 weeks, with a 2lb weight limit. 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 Right carpal tunnel syndrome, mild, recurrent S/P release Done by Dr. Leyva, DOS: 03/04/18 Pre-operatively with dense numbness, and significant improvement after surgery No complaints of numbness at this time Nerve conduction study findings most likely residual following his previous carpal tunnel release 3. Left carpal tunnel syndrome, mild No complaints at this time 4. Left hand numbness In the ulnar nerve distribution No evidence of cubital tunnel or cervical radiculopathy on NCS from 03/26/23 He has a Hx of multiple pinched nerves and C-spine surgery in the past after having a brick wall fall onto him ~15-20 years ago 5. Right dorsal Triquetral avulsion fracture From a fall, DOI: 11/2022 He has finished OT hand therapy and continues to perform exercises at home Scribed for Laurence Archuleta MD by Mal Friend, certified medical asst, on 05/13/23 at 4:10 PM, EST. Medications: New amoxicillin-pot clavulanate 875-125 mg 1 tab PO Q12H 7 tabs 0RF Coding Level of Care Code Global (86381) Diagnoses Fracture of triquetrum of right wrist S62.111A Carpal tunnel syndrome of right wrist G56.01 Carpal tunnel syndrome of left wrist G56.02 Cubital tunnel syndrome on right G56.21
== END 2023-05-13 16:21 | disposition home or self-care (01) ==
PROVIDERS: PCP Internal Medicine; Visit Provider Orthopaedic Surgery
DX: S62.111A Displaced fracture of triquetrum [cuneiform] bone, right wrist, initial encounter for closed fracture (principal); G56.01 Carpal tunnel syndrome, right upper limb; G56.02 Carpal tunnel syndrome, left upper limb; G56.21 Lesion of ulnar nerve, right upper limb
CPT/HCPCS: 99024

== ENCOUNTER → 2023-05-13 14:08 | Outpatient (BNVA) | payer OTHER, SELFPAY | PROVIDERS: PCP Internal Medicine; Visit Provider Orthopaedic Surgery ==

== ENCOUNTER 2023-06-17 11:07 | Outpatient (AMB) | payer OTHER, SELFPAY ==
--- NOTE | 2023-06-17 11:15 | A.OFFVIS_ITS ---
Intake Vital Signs 06/17/23 11:23 Height 5 ft 5 in Weight 215 lb BMI 35.8 Intake Visit Reasons: OV- To disuss Left hand surgery Intake Note: Mohit 57 yr old male presents today to discuss carpal tunnel release for his left hand. He is S/ right Cubital Tunnel 04/28/23 AR. States he has very little numbness however he is still having tenderness in elbow. Allergies SEAFOOD Allergy (Unknown, Uncoded 05/13/23 15:18) ANAPHYLAXIS HPI OV- To disuss Left hand surgery HPI Details Mohit is a 57 year old right hand dominant man who returns to discuss his left carpal tunnel syndrome. In regards to his left hand, he says he has some worsening numbness in the median nerve distribution, particularly in the middle finger. He has a hx of right cubital tunnel release, DOS: 04/28/23 & a right carpal tunnel release by Dr. Leyva, DOS: 03/04/18 In regards to his right hand, he reports some improvement in the numbness, but he continues to have tenderness about his elbow. 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 He says he only has mild numbness occasionally in the median nerve distribution of his hand, but it is much improved since his surgery. 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 He says he had a brick wall fall on top of him and his daughter ~15-20 years ago, which led to his nerve issues and his surgeries. 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 Normal sensation to the thumb and small finger No thenar or intrinsic wasting Good APB muscle belly firing and good finger cross Vascular: Cap refill brisk ROM: He can make a fist and extend all his digits No locking or catching Nerve Conduction Study: Impression: Mild bilateral carpal tunnel syndrome Mild compression palsy of the right ulnar nerve at wrist Normal MG of the right C5-T1 innervated muscles Dr. Rico 03/26/23 Psych Appearance: grossly normal Affect: normal affect Attitude: cooperative Assessment & Plan Assessment & Plan (1) Fracture of triquetrum of right wrist: Code(s): S62.111A - Displaced fracture of triquetrum [cuneiform] bone, right wrist, initial encounter for closed fracture (2) Carpal tunnel syndrome of right wrist: Code(s): G56.01 - Carpal tunnel syndrome, right upper limb (3) Carpal tunnel syndrome of left wrist: Code(s): G56.02 - Carpal tunnel syndrome, left upper limb (4) Cubital tunnel syndrome on right: Code(s): G56.21 - Lesion of ulnar nerve, right upper limb Plan Assessment & Plan: 1. Left carpal tunnel syndrome, mild Symptoms intermittent, but daily, worse in the middle finger & at night I educated him about this condition I discussed operative and non-operative treatment options The patient would like to proceed with surgery The risks and benefits of operative treatment were discussed with the patient and the patient wishes to proceed with surgery. These risks include, but are not limited to risk of damage to blood vessels, nerves, tendons, infection, recurrence, incomplete relief of preoperative symptoms, persistent pain, possible need for further surgery and the risks associated with regional blocks and anesthesia. The plan is to take the patient to the operating room sometime in the next few weeks for the following procedures: 1. Left carpal tunnel release, under local All of the preoperative paperwork including the consent was filled out today. All the patient's questions were answered. The patient understands that they will be contacted by our stereo operator soon to schedule this procedure He denies Diabetes, blood thinners, heart, lung, kidney issues He has asthma, which is well-controlled 2. Left hand numbness In the ulnar nerve distribution No evidence of cubital tunnel or cervical radiculopathy on NCS from 03/26/23 He has a Hx of multiple pinched nerves and C-spine surgery in the past after having a brick wall fall onto him ~15-20 years ago 3. Right Cubital tunnel syndrome, S/P release & anterior transposition DOS: 04/28/23 NCS reports compression palsy of the ulnar nerve at the wrist Now with improved sensation to the ring and small fingers 4. Right carpal tunnel syndrome, mild, recurrent S/P release Done by Dr. Leyva, DOS: 03/04/18 Pre-operatively with dense numbness, and significant improvement after surgery No complaints of numbness at this time Nerve conduction study findings most likely residual following his previous carpal tunnel release 5. Right dorsal Triquetral avulsion fracture From a fall, DOI: 11/2022 He continues to perform exercises at home Scribed for Laurence Archuleta MD by Mal Friend medical insurance coding specialist, on 06/17/23 at 11:35 AM, EST. Coding Level of Care Code Est Pt Level 4 (72648) Diagnoses Fracture of triquetrum of right wrist S62.111A Carpal tunnel syndrome of right wrist G56.01 Carpal tunnel syndrome of left wrist G56.02 Cubital tunnel syndrome on right G56.21
[2023-06-17 11:23] VITALS: BMI 35.8
== END 2023-06-17 11:56 | disposition home or self-care (01) ==
PROVIDERS: PCP Internal Medicine; Visit Provider Orthopaedic Surgery
DX: S62.111A Displaced fracture of triquetrum [cuneiform] bone, right wrist, initial encounter for closed fracture (principal); G56.03 Carpal tunnel syndrome, bilateral upper limbs; G56.21 Lesion of ulnar nerve, right upper limb
CPT/HCPCS: 99214

== ENCOUNTER → 2023-06-17 11:07 | Outpatient (BNVA) | payer OTHER, SELFPAY | PROVIDERS: PCP Internal Medicine; Visit Provider Orthopaedic Surgery | DX: S62.111D Displaced fracture of triquetrum [cuneiform] bone, right wrist, subsequent encounter for fracture with routine healing (principal); G56.03 Carpal tunnel syndrome, bilateral upper limbs; Z86.69 Personal history of other diseases of the nervous system and sense organs | CPT/HCPCS: 99212 ==

== ENCOUNTER 2023-06-27 06:01 | Outpatient (REF) | payer OTHER, SELFPAY ==
[2023-06-27 06:11] LABS: MANUAL DIFF FLAG NO
[2023-06-27 07:00] LABS: Basophils Absolute Auto 0.1 X10*3/uL (0.0-0.2); Basophils Percent Auto 1.7 % (0-2); Eosinophils Absolute Auto 0.2 X10*3/uL (0.0-0.4); Eosinophils Percent Auto 3.3 % (0-4); Hematocrit 47.9 % (42.0-52.0); Hemoglobin 16.2 g/dl (14.0-18.0); Imm Gran Abs Auto 0.02 X10*3/uL (0.00-0.03); Imm Gran Pct Auto 0.4 % (0.0-0.4); Lymphocytes Absolute Auto 2.4 X10*3/uL (1.2-4.9); Lymphocytes Percent Auto 44.3 % (20-40); Mean Corpuscular HGB Conc 33.8 g/dl (31.0-36.0); Mean Corpuscular Volume 88.7 fL (80.0-98.0); Mean Platelet Volume 9.8 fL (9.4-12.4); Monocytes Absolute Auto 0.6 X10*3/uL (0.1-1.2); Monocytes Percent Auto 10.9 % (2-11); Neutrophils Absolute Auto 2.1 x10*3/uL (2.0-8.3); Neutrophils Percent Auto 39.4 % (45-73); Platelet Count 257 X10*3/uL (160-400); Red Cell Distribution Width 12.8 % (11.0-16.0); White Blood Count 5.4 X10*3/uL (4.8-10.8)
[2023-06-27 07:35] LABS: Alanine Aminotransferase 38 U/L (0-40); Albumin Level 4.5 g/dL (3.5-5.0); Alkaline Phosphatase 69 U/L (39-117); Anion Gap 9 (12-20); Aspartate Amino Transferase 34 U/L (5-37); Bilirubin Total 0.9 mg/dL (0.0-1.0); Blood Urea Nitrogen 16 mg/dL (9-16); Calcium 9.2 mg/dL (8.4-10.2); Carbon Dioxide 31 mmol/L (22-29); Chloride 105 mmol/L (96-108); Cholesterol 127 mg/dL (<200); Estimated Glomerular Filt Rate > 60; Glucose Random 114 mg/dL (60-115); HDL Cholesterol 39 mg/dL (>40); LDL Cholesterol Calculated 73 mg/dL (<100); Potassium 3.8 mmol/L (3.3-5.1); Sodium 141 mmol/L (135-145); Total Protein 7.3 g/dL (6.5-8.0); Triglycerides 79 mg/dL (<150)
== END 2023-06-27 06:02 | disposition home or self-care (01) ==
LOC: HO.LAB 06:01
PROVIDERS: PCP Internal Medicine; Visit Provider Internal Medicine
DX: E78.2 Mixed hyperlipidemia (principal); F10.10 Alcohol abuse, uncomplicated; I10 Essential (primary) hypertension
CPT/HCPCS: 36415; 80053; 80061; 85025

== ENCOUNTER 2023-10-02 08:35 | Day surgery (SDC) | payer OTHER, SELFPAY ==
[2023-10-02 09:13] VITALS: BP 142/84; PULSE 61; RESP 16; TEMP 36.2; O2SAT 94; BMI 35.7
--- NOTE | 2023-10-02 10:29 | MHC.SHP ---
Pre-Procedural Eval Section A - 24 Hr Update-Section A only Date of Service: 10/02/23 The patient is an INPATIENT: No Changes since office visit: No Cold of Flu in the past 2 weeks, No New Medical Problems, No Changes in Medication and No Patient answered all questions The patient has been examined within 24 hours of the surgical procedure. The History & Physical has been completed within 30 days and I have reviewed it.: Yes Section B - Complete if H&P > 30 days Chief Complaint: Carpal tunnel syndrome, left upper limb Allergies: Allergies Allergy/AdvReac Type Severity Reaction Status Date / Time SEAFOOD Allergy Unknown ANAPHYLAXIS Uncoded 10/02/23 09:12 Plan I have reviewed the history and physical and performed a pertinent physical examination on my patient. No changes have occurred unless specified. Time Spent With Patient Time: Total time managing care of this patient today ____ minutes.
--- NOTE | 2023-10-02 10:30 | W.PM.OPN ---
Operative Note Operative Note Date of Service: 10/02/23 Narrative: Preop diagnosis: 1. Left Carpal tunnel syndrome Postop diagnosis: same Procedure: 1. Left Carpal tunnel release Surgeon: Laurence Archuleta MD Anesthesia: local block using 1% lidocaine with epinephrine Findings: Thickened transverse carpal ligament. EBL: Less than 5 mL Specimens: None Complications: None Disposition: Brought to recovery room in stable condition Plan: Follow-up for 10-14 days for wound check and suture removal Indications: The patient is 58 years old, with left carpal tunnel syndrome that has been unresponsive to nonoperative management. The risks and benefits of operative treatment including but not limited to risk of damage to blood vessels, nerves, tendons, infection, persistent pain, persistent symptoms, or possible need for additional surgery were discussed with the patient and the patient wishes to proceed with surgery. Procedure: Once consent was obtained a local block was performed using a combination of 1% lidocaine with epinephrine. The patient was then brought back to the operating suite and placed on the operative table in supine position. The left upper extremity was prepped and draped in a standard surgical fashion. Once assured that we had a good block, a 2.0 cm longitudinal incision was made centered over the carpal tunnel. The incision was made through the skin to the subcutaneous tissues using a #15 blade. Dissection was made down to the level of the transverse carpal ligament with care being taken to protect the palmar cutaneous nerve. Once the transverse carpal ligament was clearly visualized, a longitudinal incision was made in the transverse carpal ligament 1st using a #15 blade, then using tenotomy scissors under direct visualization. Care was taken to look for and protect the motor branch of the median nerve when seen in this area. Once satisfied with our carpal tunnel release the wound was copiously irrigated with normal saline and hemostasis was obtained with a brief period of local pressure. The skin edges were reapproximated with some 5.0 nylon suture material and a sterile dressing was applied. The patient appears to have tolerated the procedure well and with no complications. All digits were well vascularized at the conclusion of the case.
[2023-10-02 14:05] VITALS: BP 136/85; PULSE 59; RESP 16; O2SAT 94
== END 2023-10-02 14:09 | disposition home or self-care (01) ==
PROVIDERS: PCP Internal Medicine; Visit Provider Orthopaedic Surgery
PROC: (CPT 64721; principal; 2023-10-02 10:40)
DX: G56.02 Carpal tunnel syndrome, left upper limb (principal); R20.0 Anesthesia of skin; I10 Essential (primary) hypertension; J45.909 Unspecified asthma, uncomplicated; Z79.899 Other long term (current) drug therapy; Z98.890 Other specified postprocedural states
CPT/HCPCS: 64721; J0171

== ENCOUNTER → 2023-10-02 08:35 | Outpatient (BNV) | payer OTHER, SELFPAY | PROVIDERS: PCP Internal Medicine; Visit Provider Orthopaedic Surgery | DX: G56.02 Carpal tunnel syndrome, left upper limb (principal) | CPT/HCPCS: 64721 ==

== ENCOUNTER 2023-10-15 11:34 | Outpatient (AMB) | payer OTHER, SELFPAY ==
[2023-10-15 11:39] VITALS: BMI 35.7
--- NOTE | 2023-10-15 11:39 | MHC.OFFVIS ---
Intake Vital Signs 10/15/23 11:39 Height 5 ft 6 in Weight 221 lb BMI 35.7 Intake Visit Reasons: PO Left CTR 10/02/23 Intake Note: Mohit 58 yr old male presents today for his PO visit for his Left CTR 10/02/23. States numbness has improved? Sutures removed and steri place. States he has mild pain by his incision. Allergies SEAFOOD Allergy (Unknown, Uncoded 10/15/23 11:40) ANAPHYLAXIS HPI PO Left CTR 10/02/23 HPI Details Mohit is a 58 year old right hand dominant man who returns S/P left carpal tunnel release, DOS: 10/02/23. In regards to his left hand, he reports having some pain near his incision site, which has been present & worsening in the last 2 days. He is concerned about an infection. He says his sensation has improved and he is happy about this. 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 He does have a mild suture abscess around two of his sutures. The sutures removed and we expressed a small amount of pus. The incision site appears to be healing well however and did not separate. He can make a fist and extend all his digits Sensation is improved and now normal Cap refill is brisk Psych Appearance: grossly normal Affect: normal affect Attitude: cooperative Assessment & Plan Assessment & Plan (1) Fracture of triquetrum of right wrist: Code(s): S62.111A - Displaced fracture of triquetrum [cuneiform] bone, right wrist, initial encounter for closed fracture (2) Carpal tunnel syndrome of right wrist: Code(s): G56.01 - Carpal tunnel syndrome, right upper limb (3) Carpal tunnel syndrome of left wrist: Code(s): G56.02 - Carpal tunnel syndrome, left upper limb (4) Cubital tunnel syndrome on right: Code(s): G56.21 - Lesion of ulnar nerve, right upper limb Plan Assessment & Plan: 1. Left carpal tunnel syndrome, S/P release DOS: 10/02/23 Pre-operative symptoms intermittent, but daily, worse in the middle finger & at night Now with normal sensation & good resolution of his nighttime symptoms The patient appears to be doing well post-operatively, though he did appear to have a suture abscess today in clinic. Sutures removed today in clinic and a small amount of purulence was expressed from 1 of the suture sites. I educated him about the post-operative course He was placed on a 7-day course of Augmentin. If he develops any worsening symptoms of erythema, drainage, pain, or warmth they should contact the clinic immediately or attend the ED. I discussed activity modifications, he is to lift nothing heavier than a cellphone for the next two weeks He will perform wound care and gentle ROM exercises at home He will follow up for a wound check in 1 week, or sooner if he is having trouble This can be done with a PA. 2. Left hand numbness In the ulnar nerve distribution No evidence of cubital tunnel or cervical radiculopathy on NCS from 03/26/23 He has a Hx of multiple pinched nerves and C-spine surgery in the past after having a brick wall fall onto him ~15-20 years ago 3. Right Cubital tunnel syndrome, S/P release & anterior transposition DOS: 04/28/23 NCS reports compression palsy of the ulnar nerve at the wrist Now with improved sensation to the ring and small fingers 4. Right carpal tunnel syndrome, mild, recurrent S/P release Done by Dr. Leyva, DOS: 7/18/18 Pre-operatively with dense numbness, and significant improvement after surgery No complaints of numbness at this time Nerve conduction study findings most likely residual following his previous carpal tunnel release 5. Right dorsal Triquetral avulsion fracture From a fall, DOI: 11/2022 He continues to perform exercises at home Scribed for Laurence Archuleta MD by Mal Friend, medical donation professional, on 10/15/23 at 11:45 AM, EST. Medications: New amoxicillin-pot clavulanate 875-125 mg 1 tab PO Q12H 14 tabs 0RF Coding Level of Care Code Global (91275) Diagnoses Fracture of triquetrum of right wrist S62.111A Carpal tunnel syndrome of right wrist G56.01 Carpal tunnel syndrome of left wrist G56.02 Cubital tunnel syndrome on right G56.21
== END 2023-10-15 11:51 | disposition home or self-care (01) ==
PROVIDERS: PCP Internal Medicine; Visit Provider Orthopaedic Surgery
DX: S62.111A Displaced fracture of triquetrum [cuneiform] bone, right wrist, initial encounter for closed fracture (principal); G56.03 Carpal tunnel syndrome, bilateral upper limbs; G56.21 Lesion of ulnar nerve, right upper limb
CPT/HCPCS: 99024

== ENCOUNTER → 2023-10-15 11:34 | Outpatient (BNVA) | payer OTHER, SELFPAY | PROVIDERS: PCP Internal Medicine; Visit Provider Orthopaedic Surgery | DX: Z47.89 Encounter for other orthopedic aftercare (principal); S62.111D Displaced fracture of triquetrum [cuneiform] bone, right wrist, subsequent encounter for fracture with routine healing; Z86.69 Personal history of other diseases of the nervous system and sense organs | CPT/HCPCS: 99212 ==

== ENCOUNTER 2023-10-27 13:47 | Outpatient (AMB) | payer OTHER, SELFPAY ==
--- NOTE | 2023-10-27 13:53 | A.OFFVIS_ITS ---
Intake Vital Signs 10/27/23 13:57 Height 5 ft 6 in Weight 221 lb BMI 35.7 Intake Visit Reasons: PO Left CTR 10/02/23-wound check Intake Note: Mohit a 58 year old male presents today for a post operative wound check s/p left CTR on 10/02/23. Patient reports he is doing well, however he has concern of pain with lifting affecting his work. He has completed antibiotics. Allergies SEAFOOD Allergy (Unknown, Uncoded 10/27/23 13:56) ANAPHYLAXIS HPI PO Left CTR 10/02/23-wound check HPI Details 58-year-old male who returns to the [facility] today for post-op left CTR, 10/02/[address] Archuleta. He states he has pain in his wrist with lifting activities, affecting his work however he is doing well otherwise. He is completed with his antibiotic regimen with benefits. He has no other concerns today. 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 No open wound, no suture abscess or erythema. He has tenderness to palpation over the incision along some scar tissue. NVI. Assessment & Plan Assessment & Plan (1) Carpal tunnel syndrome of left wrist: Code(s): G56.02 - Carpal tunnel syndrome, left upper limb Plan I educated him on the importance of scar tissue massages to breakup adhesion and help with his discomfort. I also advised caution with any type of lifting activities for another week and can continue without restrictions after a week. If symptoms persist or worsens, patient will contact the office, otherwise follow-up as needed. Patient Instructions: Scribed for Maite Victoria PA-C, by Alverto Rodriguez, medical reimbursement specialist, on 10/27/2023 at 2:30 PM Maite VEGA PA-C, have personally reviewed and agree with the information entered by the scribe. Coding Level of Care Code Global (84922) Diagnoses Carpal tunnel syndrome of left wrist G56.02
[2023-10-27 13:57] VITALS: BMI 35.7
== END 2023-10-27 15:10 | disposition home or self-care (01) ==
PROVIDERS: PCP Internal Medicine; Visit Provider Physician Assistant
DX: G56.02 Carpal tunnel syndrome, left upper limb (principal)
CPT/HCPCS: 99024

== ENCOUNTER → 2023-10-27 13:47 | Outpatient (BNVA) | payer OTHER, SELFPAY | PROVIDERS: PCP Internal Medicine; Visit Provider Physician Assistant | DX: Z47.89 Encounter for other orthopedic aftercare (principal); Z86.69 Personal history of other diseases of the nervous system and sense organs | CPT/HCPCS: 99212 ==

== ENCOUNTER 2023-12-19 06:20 | Outpatient (REF) | payer OTHER, SELFPAY ==
[2023-12-19 06:36] LABS: MANUAL DIFF FLAG NO
[2023-12-19 07:28] LABS: Basophils Absolute Auto 0.1 X10*3/uL (0.0-0.2); Basophils Percent Auto 1.2 % (0-2); Eosinophils Absolute Auto 0.2 X10*3/uL (0.0-0.4); Eosinophils Percent Auto 4.2 % (0-4); Hematocrit 47.2 % (42.0-52.0); Imm Gran Abs Auto 0.01 X10*3/uL (0.00-0.03); Imm Gran Pct Auto 0.2 % (0.0-0.4); Lymphocytes Absolute Auto 2.9 X10*3/uL (1.2-4.9); Lymphocytes Percent Auto 50.9 % (20-40); Mean Corpuscular HGB Conc 33.9 g/dl (31.0-36.0); Mean Corpuscular Hemoglobin 30.4 pg (27.0-33.0); Mean Corpuscular Volume 89.6 fL (80.0-98.0); Mean Platelet Volume 10.1 fL (9.4-12.4); Monocytes Absolute Auto 0.5 X10*3/uL (0.1-1.2); Monocytes Percent Auto 8.6 % (2-11); Neutrophils Percent Auto 34.9 % (45-73); Platelet Count 275 X10*3/uL (160-400); Red Blood Count 5.27 X10*6/uL (4.60-5.80); Red Cell Distribution Width 12.8 % (11.0-16.0); White Blood Count 5.7 X10*3/uL (4.8-10.8)
[2023-12-19 08:20] LABS: Alanine Aminotransferase 30 U/L (0-40); Albumin Level 4.5 g/dL (3.5-5.0); Alkaline Phosphatase 70 U/L (39-117); Anion Gap 13 (12-20); Aspartate Amino Transferase 33 U/L (5-37); Bilirubin Total 1.6 mg/dL (0.0-1.0); Blood Urea Nitrogen 20 mg/dL (9-16); Calcium 9.9 mg/dL (8.4-10.2); Carbon Dioxide 29 mmol/L (22-29); Chloride 103 mmol/L (96-108); Estimated Glomerular Filt Rate > 60; Glucose Random 114 mg/dL (60-115); Potassium 3.9 mmol/L (3.3-5.1); Sodium 141 mmol/L (135-145); Total Protein 7.1 g/dL (6.5-8.0)
[2023-12-19 08:36] LABS: Thyroid Stimulating Hormone 1.67 uIU/mL (0.32-4.0)
[2023-12-19 08:40] LABS: Prostate Specific Antigen 1.25 ng/mL (<0.05-4.0)
== END 2023-12-19 06:21 | disposition home or self-care (01) ==
LOC: HO.LAB 06:20
PROVIDERS: PCP Internal Medicine; Visit Provider Internal Medicine
DX: E66.9 Obesity, unspecified (principal); G47.33 Obstructive sleep apnea (adult) (pediatric); I10 Essential (primary) hypertension; K59.00 Constipation, unspecified; N40.0 Benign prostatic hyperplasia without lower urinary tract symptoms; R53.83 Other fatigue
CPT/HCPCS: 36415; 80053; 84153; 84443; 85025

== ENCOUNTER 2024-05-05 15:06 | Outpatient (AMB) | payer MEDICAID, SELFPAY ==
--- NOTE | 2024-05-05 15:13 | MHC.OFFVIS ---
Intake Visit Reasons: OV- B/L hand pain, LT CTR 10/02/23 AR Intake Note: Mohit is a 58 year old right hand dominant male who presents for a follow up visit of his bilateral hand pain S/P Left carpal tunnel release DOS: 10/02/2023 & Right Cubital Tunnel Release, and anterior transposition DOS: 04/28/23 w/ Dr Archuleta. Right worse than left. Patient expresses for the past 3 months his 5th right digit has been locking and causing him severe pain. This worsens at night causing him to be unable to sleep. He express his 4th and 5th digit of right hand have numbness and tingling, the entire 5th digit is constantly numb and the 4th digit is only numb at tip of digit. He expresses unable to lift with his left hand because of pain he syays he has been having for many years but his main concern today is his left 5th digit. He tries naproxen but has mild relief. Allergies SEAFOOD Allergy (Unknown, Uncoded 05/05/24 15:25) ANAPHYLAXIS HPI HPI OV- B/L hand pain, LT CTR 10/02/23 AR: Details: Patient is a 58-year-old male who presents for evaluation of right small finger pain, locking, catching, ongoing for approximately 3 months. The patient reports that this has gotten significantly worse over that time period, is worse at night, and now causes him significant pain, particularly 1st thing in the morning. Of note, the patient also reports that intermittent numbness and tingling have once again returned to the ulnar nerve distribution of his right hand over the same timeframe. The patient states that he was advised by Dr. Archuleta to return if this happens to discuss further treatment options, as he is status post cubital tunnel release on the right, but EMG did demonstrate ulnar nerve neuropathy at the wrist. The patient states that he has had previous injections into his hand, to good relief, and states he would like to pursue injections for his locking and catching of his right small finger. No other acute complaints or concerns at this time. 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 Neuro: Diminished sensation in the ulnar nerve distribution of the right hand at this time Normal sensation of the tips of all of the digits of the right hand this type Vascular: Cap refill brisk Pain: Patient reports tenderness to palpation over the A1 travis of the right small finger Patient also reports pain with associated with locking and catching of the right small finger ROM: Visible and palpable locking and catching of the right small finger noted, requiring manual release Skin: Well-healed incision sites noted about the right volar wrist and right elbow General: No ecchymosis, erythema, or evidence of infection. Psych: Appears grossly normal Affect normal Attitude cooperative Office Procedures Tendon Injection Tendon Injection Details: Right small finger trigger injection 03414-Kekjzu Tendon Sheath Injection All charges added?: Procedure code (CPT) selection complete Results Reviewed Results Reviewed: EMG performed on 03/26/[address] Rico demonstrated bilateral carpal tunnel syndrome, as well as right ulnar neuropathy at the wrist. Assessment & Plan Assessment & Plan (1) Numbness and tingling in right hand: Code(s): R20.0 - Anesthesia of skin; R20.2 - Paresthesia of skin Category: Medical (2) Trigger finger, right little finger: Code(s): M65.351 - Trigger finger, right little finger Category: Medical Plan 1. Trigger finger, right small finger Ongoing for approximately 3 months I discussed the treatment options available for trigger finger with the patient, and he would like to proceed with injection The risks and benefits of a steroid injection including but not limited to risk of damage to blood vessels, nerves, tendons, infection, skin bleaching, failure to improve symptoms, increased pain, and possible need for further injections or other intervention were discussed with the patient and the patient wishes to proceed with the steroid injection. Once consent was obtained, I aseptically prepped the area over the A1 travis of the flexor tendon sheath of the right small finger. I then injected the flexor tendon sheath with a combination of 1 mL of dexamethasone (4mg/ml), and 1% lidocaine. The patient tolerated the procedure well with no complications. If the patient continues to have locking and catching 4-6 weeks following this injection, they may call to schedule appointment to discuss alternative treatment options Follow-up prn 2. Numbness and tingling in the ulnar nerve distribution of the right hand Symptoms intermittent, daily, worse at night At this time, patient is booked follow-up appointment with Dr. Archuleta for reassessment of the numbness and tingling in the ulnar nerve distribution of his right hand and discussion of further treatment options, per her previously discussed plan with the patient Patient is amenable to this plan Coding Level of Care Code Est Pt Level 3 (87094) Diagnoses Numbness and tingling in right hand R20.0; R20.2 Trigger finger, right little finger M65.351 CPT Codes Tendon Injection - Tendon Injection 1: [id number]-[id number] Tendon Sheath Injection ([id number])
== END 2024-05-05 16:26 | disposition home or self-care (01) ==
PROVIDERS: PCP Internal Medicine
DX: M65.351 Trigger finger, right little finger (principal); R20.0 Anesthesia of skin; R20.2 Paresthesia of skin
CPT/HCPCS: 20550; 99213

== ENCOUNTER → 2024-05-05 15:06 | Outpatient (BNVA) | payer OTHER, SELFPAY | PROVIDERS: PCP Internal Medicine | DX: M65.351 Trigger finger, right little finger (principal); R20.0 Anesthesia of skin; R20.2 Paresthesia of skin | CPT/HCPCS: 20550; 99212; J1100 ==

== ENCOUNTER 2024-05-25 14:16 | Outpatient (AMB) | payer SELFPAY ==
[2024-05-25 14:45] VITALS: BMI 35.7
--- NOTE | 2024-05-25 14:45 | MHC.OFFVIS ---
Vital Signs 05/25/24 14:45 Height 5 ft 6 in Weight 221 lb BMI 35.7 Intake Visit Reasons: OV- Right wrist ulnar neuropathy Intake Note: Mohit is a 58 yo right hand dominant male who presents for RIGHT hand pain S/P Right Cubital Tunnel Release, and anterior transposition DOS: 04/28/[address] Archuleta. Patient reports about 3 months ago he began having numbness and tingling on the volar aspect of the DIP joint of the right ring finger and right small finger. He would like to discuss alternative treatment options. He also reports burning and numbness on his right shoulder. Patient states he is having trouble sleeping at night because of all the numbness. He has been taking naproxen with minimal relief. Hx of LEFT carpal tunnel release done 10/02/[address] Archuleta. Hx of right CTR 2-3 years ago, patient unsure on who the surgeon was. EMG done 03/26/23. Allergies SEAFOOD Allergy (Unknown, Uncoded 05/25/24 14:54) ANAPHYLAXIS HPI HPI OV- Right wrist ulnar neuropathy: Details: Mohit is a 58 year old right hand dominant man who returns to discuss his right hand numbness. He complains of numbness in the right ring & small fingers. Symptoms intermittent, but daily. he says this began ~3 months ago and is felt primarily at the tips of his fingers. He also complains of painful locking of his right small finger. He was given a steroid injection by THOMAS Cruz on 05/05/24. He says the injection has not been helpful and he continues to have pain & locking of the finger. He has a Hx of right ulnar nerve compression at the wrist. He has a Hx of a right cubital tunnel release & anterior transposition, DOS: 04/28/23, & left carpal tunnel release, DOS: 10/02/23. He has recurrent right carpal tunnel syndrome, S/P release by Dr. Leyva, DOS: 03/04/18 He also complains of pain in his right shoulder & elbow, worse at night. He reports having multiple pinched nerves in his neck & back, as well as C-spine surgeries in the past. 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 Physical Exam Vital Signs: BMI result Body Mass Index 35.7 Const General: no acute distress and alert Orientation/consciousness: patient oriented x3 Neuro General: patient oriented x3 Extrem Other: Evaluation of Right Upper Extremity: The patient is alert, oriented, and in no acute distress Neuro: decreased sebsation in SF/RF No thenar or intrinsic wasting Good APB muscle belly firing and good finger cross Vascular: Cap refill brisk ROM: He can make a fist and extend all his digits SF locking and catching Nerve Conduction Study: Impression: Mild bilateral carpal tunnel syndrome Mild compression palsy of the right ulnar nerve at wrist Normal MG of the right C5-T1 innervated muscles Dr. Rico 03/26/23 Psych Appearance: grossly normal Affect: normal affect Attitude: cooperative Assessment & Plan Assessment & Plan (1) Neuropathy of right ulnar nerve at wrist: Code(s): G56.21 - Lesion of ulnar nerve, right upper limb Category: Medical (2) Trigger finger, right little finger: Code(s): M65.351 - Trigger finger, right little finger Category: Medical (3) Right shoulder pain: Code(s): M25.511 - Pain in right shoulder Category: Medical Plan Assessment & Plan: 1. Right ulnar hand numbness for ~3 months after significant improvement following ulnar nerve transposition 2. Right Cubital tunnel syndrome, S/P release & anterior transposition DOS: 04/28/23 NCS reports compression palsy of the ulnar nerve at the wrist With improved sensation to the ring and small fingers following surgery I ordered a new NCS to assess for peripheral nerve compression He will follow up when completed for review 3. Right small trigger finger, S/P injection by THOMAS Cruz Date of injection: 05/05/24 He continues to complain of painful locking of the finger I explained that it takes 4-6 weeks following the injection to improve I recommend he wait and let the injection work If this continues to bother him, we can discuss treatment options when he returns for his NCS revew 4. Left carpal tunnel syndrome, S/P release DOS: 10/02/23 Pre-operative symptoms intermittent, but daily, worse in the middle finger & at night Now with normal sensation & good resolution of his nighttime symptoms 5. Left hand numbness In the ulnar nerve distribution No evidence of cubital tunnel or cervical radiculopathy on NCS from 03/26/23 He has a Hx of multiple pinched nerves and C-spine surgery in the past after having a brick wall fall onto him ~15-20 years ago 6. Right carpal tunnel syndrome, mild, recurrent S/P release Done by Dr. Leyva, DOS: 03/04/18 Pre-operatively with dense numbness, and significant improvement after surgery No complaints of numbness at this time Nerve conduction study findings most likely residual following his previous carpal tunnel release 7. Right dorsal Triquetral avulsion fracture From a fall, DOI: 11/2022 8. Right anterior shoulder & elbow pain Worse with heavy lifting, overhead activity, and at night I recommend he make an appointment to be seen by an Ortho PA or Dr. Leyva for assessment Scribed for Laurence Archuleta MD by Mal Friend, pesticide use medical coordinator, on 05/25/24 at 3:20 PM, EST. Orders: Orders NE nerve conduction velocity Today R20.0 - Anesthesia of skin, R20.2 - Paresthesia of skin Coding Level of Care Code Est Pt Level 4 (37972) Diagnoses Neuropathy of right ulnar nerve at wrist G56.21 Trigger finger, right little finger M65.351 Right shoulder pain M25.511
== END 2024-05-25 15:34 | disposition home or self-care (01) ==
PROVIDERS: PCP Internal Medicine; Visit Provider Orthopaedic Surgery
DX: G56.21 Lesion of ulnar nerve, right upper limb (principal); M65.351 Trigger finger, right little finger; M25.511 Pain in right shoulder
CPT/HCPCS: 99214

== ENCOUNTER → 2024-05-25 14:16 | Outpatient (BNVA) | payer OTHER, SELFPAY | PROVIDERS: PCP Internal Medicine; Visit Provider Orthopaedic Surgery | DX: G56.21 Lesion of ulnar nerve, right upper limb (principal); M65.351 Trigger finger, right little finger; M25.511 Pain in right shoulder | CPT/HCPCS: 99212 ==

== ENCOUNTER 2024-05-26 15:27 | Outpatient (REF) | payer MEDICAID, SELFPAY ==
--- NOTE | 2024-05-27 07:55 | MHC.AU.MED ---
Medical Clearance for Hearing Instrumentation Date: 05/27/24 Patient Name: Mohit [place] Date of : 1965 Referring Provider: Peggy Pitt MD We have seen your patient on 05/27/24 and have determined that they are a candidate for amplification (See accompanying report). Specifically, they would benefit from: Hearing aid use in both ears There is a statute that addresses Medical Evaluation Requirements prior to fitting a patient with a hearing aid. According to [place] statute 265 CMR:6.03(1), (a) General. Except as provided in 265 CMR 6.03(1)(b), a jukebox route driver shall not sell a hearing aid unless the prospective user has presented to the jukebox route driver a written statement signed by a licensed physician that states that the patient's hearing loss has been medically evaluated and the patient may be considered a candidate for a hearing aid. The medical evaluation must have taken place within the preceding six months. Please note: Due to the [place] Statute referenced above, we cannot accept a signature other than that of a licensed physician. SHOW HOST and PA signatures cannot be accepted. I am in agreement with the above recommendation. There is no medical contraindication for hearing instrumentation. Physician Signature Date Physician Name (Printed)
== END 2024-05-26 15:28 | disposition home or self-care (01) ==
LOC: HO.SH 15:27
PROVIDERS: Visit Provider Internal Medicine
DX: Z01.118 Encounter for examination of ears and hearing with other abnormal findings (principal); Z46.1 Encounter for fitting and adjustment of hearing aid; H90.3 Sensorineural hearing loss, bilateral
CPT/HCPCS: 92557; 92567; 92591

== ENCOUNTER 2024-06-19 07:03 | Outpatient (REF) | payer MEDICAID, SELFPAY ==
[2024-06-19 08:12] LABS: Alanine Aminotransferase 31 U/L (0-40); Albumin Level 4.2 g/dL (3.5-5.0); Alkaline Phosphatase 72 U/L (39-117); Anion Gap 12 (12-20); Aspartate Amino Transferase 30 U/L (5-37); Bilirubin Total 1.2 mg/dL (0.0-1.0); Blood Urea Nitrogen 21 mg/dL (9-16); Calcium 9.8 mg/dL (8.4-10.2); Carbon Dioxide 28 mmol/L (22-29); Chloride 107 mmol/L (96-108); Cholesterol 103 mg/dL (<200); Estimated Glomerular Filt Rate > 60; Glucose Fasting 112 mg/dL (60-99); HDL Cholesterol 37 mg/dL (>40); LDL Cholesterol Calculated 49 mg/dL (<100); Sodium 143 mmol/L (135-145); Total Protein 6.6 g/dL (6.5-8.0); Triglycerides 87 mg/dL (<150)
== END 2024-06-19 07:04 | disposition home or self-care (01) ==
LOC: HO.LAB 07:03
PROVIDERS: PCP Internal Medicine; Visit Provider Internal Medicine
DX: G47.33 Obstructive sleep apnea (adult) (pediatric) (principal); G63 Polyneuropathy in diseases classified elsewhere; I10 Essential (primary) hypertension; Z68.35 Body mass index [BMI] 35.0-35.9, adult
CPT/HCPCS: 36415; 80053; 80061

== ENCOUNTER 2024-06-24 13:37 | Outpatient (REF) | payer MEDICAID, SELFPAY ==
--- NOTE | 2024-06-24 13:39 | EMG_ITS ---
Chief complaint: Continued numbness of right 4th and 5th digits. Nerve conduction studies done by Dr. Rico 03/26/2023 reported right Carpal Tunnel Syndrome and right ulnar neuropathy at the wrist. Patient underwent right cubital tunnel release and anterior transposition 04/28/2023. Right Carpal Tunnel Syndrome surgery at least 3 years ago. Cervical spine fusion 4-5 years ago. Reason for referral: Evaluate for ulnar neuropathy Referred by: Dr. Archuleta Procedure done: Right upper extremity NCS/EMG Precautions and/or limitations: None The limb temperature was monitored continuously and remained between 32-36 degrees C during the performance of the NCS. Ulnar motor NCS was performed with moderate elbow flexion between 70-90 degrees, with across-elbow distance of 10 cm. Nerve Conduction Studies Anti Sensory Summary Table ?Stim Site NR Onset (ms) Norm Onset (ms) Peak (ms) Norm Peak (ms) O-P Amp (?V) Norm O-P Amp Site1 Site2 Delta-0 (ms) Dist (cm) Castillo (m/s) Norm Castillo (m/s) Right DorsCutan Anti Sensory (Dorsum 5th MC) Wrist ? 0.9 1.5 11.9 Wrist Dorsum 5th MC 0.9 0.0 Left Median Anti Sensory (2nd Digit) Wrist ? 3.0 3.7 <3.6 12.5 >10 Wrist 2nd Digit 3.0 14.0 47 Left Radial Anti Sensory (Thumb) Forearm ? 1.3 1.9 <3.1 16.1 Forearm Thumb 1.3 0.0 Left Ulnar Anti Sensory (5th Digit) Wrist ? 2.1 2.9 <3.7 7.4 >15.0 Wrist 5th Digit 2.1 14.0 67 Motor Summary Table ?Stim Site NR Onset (ms) Norm Onset (ms) O-P Amp (mV) Norm O-P Amp iAmp (mV) Amp (1st) (%) Site1 Site2 Delta-0 (ms) Dist (cm) Castillo (m/s) Norm Castillo (m/s) Right Median Motor (Abd Poll Brev) Wrist ? 4.3 <3.9 3.6 >4.5 4.6 100.0 Elbow Wrist 3.7 23.0 62 >45 Elbow ? 8.0 3.6 4.8 100.0 Right Ulnar Motor (Abd Dig Minimi) Wrist ? 2.4 <3.0 10.7 >5 12.8 100.0 B Elbow Wrist 3.8 22.5 59 >45 B Elbow ? 6.2 9.9 11.9 92.5 A Elbow B Elbow 1.1 10.0 91 >45 A Elbow ? 7.3 9.8 11.6 91.6 Right Ulnar Motor (FDI) Wrist ? 3.4 <3.0 11.3 >5 14.1 100.0 B Elbow Wrist 3.7 22.0 59 >45 B Elbow ? 7.1 8.4 10.3 74.3 A Elbow B Elbow 1.5 10.0 67 >45 A Elbow ? 8.6 5.2 6.7 46.0 EMG ?Side Muscle Nerve Root Ins Act Fibs Psw Amp Dur Poly Recrt Int Pat Comment Right 1stDorInt Ulnar C8-T1 Incr 1+ 1+ Nml Nml 0 Nml Complete Right Biceps Musculocut C5-6 Nml Nml Nml Nml Nml 0 Nml Complete Right Triceps Radial C6-7-8 Nml Nml Nml Nml Nml 0 Nml Complete Right Deltoid Axillary C5-6 Nml Nml Nml Nml Nml 0 Nml Complete Right FlexCarpiUln Ulnar C8,T1 Nml Nml Nml Nml Nml 0 Nml Complete FINDINGS: Right ulnar motor nerve, recording at FDI muscle, showed prolonged distal latency, drop in amplitude proximally, both below and above elbow. amplitude and normal conduction velocity. Right ulnar sensory nerve showed small amplitude. The dorsal ulnar cutaneous sensory nerve is expected to be normal in all cases of ulnar neuropathy at the wrist. It was normal in this patient. Right median motor nerve showed prolonged distal latency, small amplitude and normal conduction velocity. Right median sensory nerve showed prolonged peak latency. Right radial sensory nerve within normal. Concentric needle EMG was performed in selected muscles of the right upper extremity. Study revealed signs of electric abnormalities as shown in the table above. Right FDI showed increased insertional activity, PSWs and fibrillations. IMPRESSION: 1. This is an abnormal study. 2. There is electrodiagnostic evidence for right ulnar neuropathy at the wrist. 3. There is electrodiagnostic evidence for right moderate-severe median neuropathy at the wrist. Consistent with Carpal Tunnel Syndrome despite surgery in the past. 4. There is no electrodiagnostic evidence for brachial plexopathy or cervical radiculopathy. Thank you for your kind referral. Myriam Delaney MD, JENNIFER Board Certified, [place] Board [employer] and Rehabilitation (ABPMR) Board Certified, [place] Board of Electrodiagnostic Medicine (ABEM) [place] [id number] [facility]
== END 2024-06-24 13:38 | disposition home or self-care (01) ==
LOC: HO.NEURO 13:37
PROVIDERS: PCP Internal Medicine; Visit Provider Orthopaedic Surgery
DX: R20.0 Anesthesia of skin (principal); R20.2 Paresthesia of skin
CPT/HCPCS: 95886; 95909

== ENCOUNTER → 2024-06-24 13:39 | Outpatient (BNV) | payer MEDICAID, SELFPAY | PROVIDERS: PCP Internal Medicine; Visit Provider Physical Medicine & Rehabilitation | DX: G56.21 Lesion of ulnar nerve, right upper limb (principal); G56.01 Carpal tunnel syndrome, right upper limb | CPT/HCPCS: 95886; 95909 ==

== ENCOUNTER 2024-07-01 14:39 | Outpatient (AMB) | payer MEDICAID, SELFPAY ==
[2024-07-01 14:45] VITALS: BP 132/72; PULSE 69; O2SAT 96; BMI 34.9
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
== END 2024-07-01 15:42 | disposition home or self-care (01) ==
PROVIDERS: PCP Internal Medicine; Visit Provider Student in an Organized Health Care Education/Training Program
DX: M25.511 Pain in right shoulder (principal); G89.29 Other chronic pain; M15.9 Polyosteoarthritis, unspecified
CPT/HCPCS: 99204

== ENCOUNTER → 2024-07-01 14:39 | Outpatient (BNVA) | payer MEDICAID, SELFPAY | PROVIDERS: PCP Internal Medicine; Visit Provider Student in an Organized Health Care Education/Training Program | DX: M15.9 Polyosteoarthritis, unspecified (principal); M54.50 Low back pain, unspecified; M25.511 Pain in right shoulder; G89.29 Other chronic pain | CPT/HCPCS: 99202 ==

== ENCOUNTER 2024-07-12 10:20 | Outpatient (REF) | payer MEDICAID, SELFPAY ==
--- NOTE | ~2024-07-12 | XR_ITS ---
EXAMINATION: XR SHOULDER, RIGHT CLINICAL INFORMATION: M25.511 - Pain in right shoulder COMPARISON: None available. TECHNIQUE: AP external rotation, Grashey, scapular Y, and axillary views of the right shoulder. FINDINGS: Mild osteoarthritis of the acromioclavicular joint. Glenohumeral joint normal Surrounding bone and soft tissues unremarkable. XR/XR shoulder RT min 2V IMPRESSION: Mild osteoarthritis of the acromioclavicular joint Electronically signed by: Rishabh Diaz MD 07/18/2024 07:21 AM [facility]
== END 2024-07-12 10:21 | disposition home or self-care (01) ==
LOC: HO.HOSX 10:20
PROVIDERS: Visit Provider Physician Assistant
DX: M25.511 Pain in right shoulder (principal); M19.011 Primary osteoarthritis, right shoulder; S46.001A Unspecified injury of muscle(s) and tendon(s) of the rotator cuff of right shoulder, initial encounter
CPT/HCPCS: 73030; 99212

== ENCOUNTER 2024-07-12 14:50 | Outpatient (AMB) | payer MEDICAID, SELFPAY ==
--- NOTE | 2024-07-12 15:01 | A.OFFVIS_ITS ---
Vital Signs 07/12/24 15:05 Height 5 ft 6 in Weight 216 lb BMI 34.9 Intake Visit Reasons: New prob- Right shoulder pain Intake Note: Mohit a 59 year old right hand dominant male who presents today for an evaluation of right shoulder pain. Patient reports shoulder pain for a while that had gotten worse about 4 months ago when he picked up a case of water. His pain radiates down his arm to his elbow and forearm. He has numbness and tingling in his forearm. Limited ROM. Intermittent swelling in his shoulder. States throbbing pain at night making it difficult to sleep. He was seen by rheumatology and was prescribed celebrex and gabapentin. Finds some relief with celebrex and icy hot topical cream. Allergies SEAFOOD Allergy (Unknown, Uncoded 07/12/24 15:20) ANAPHYLAXIS Medication List - Last Reconciled 07/12/24 by Maite Victoria PA-C amlodipine 10 mg PO DAILY atorvastatin 20 mg PO BEDTIME celecoxib (Celebrex) 200 mg PO BID gabapentin 100 mg PO BEDTIME hydrochlorothiazide 25 mg PO DAILY lisinopril 30 mg PO DAILY terbinafine HCl 250 mg PO DAILY HPI HPI New prob- Right shoulder pain: Details: 59-year-old right hand dominant male who presents to the office today for an evaluation of right shoulder pain. He reports he had pain for a while however his pain got worse after he picked up a case of water and felt a pulling sensation in his shoulder, about 4 months ago. He currently states he has limited ROM, pain and burning sensation in his shoulder that radiates down his arm to his elbow and forearm. His pain is aggravated in the morning and he experiences a throbbing pain at night making it difficult to sleep. He also reports numbness and tingling in his forearm as well as intermittent swelling in his shoulder. He is unable to raise his arm due to the pain. He was seen by rheumatology where he was prescribed Celebrex and gabapentin. He finds mild relief with Celebrex and icy hot topical cream. 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 Tenderness over the bicipital groove and along the deltoid region of the shoulder. Forward flexion to 175, external rotation to 90, internal rotation to S1. Significant pain with RTC strength. Negative Mcmahan and cross body abduction. Positive obriens. NVI. ? Results Reviewed Results Reviewed: Xrays were obtained in the office today and personally reviewed by me of the right shoulder show mild ac joint oa Assessment & Plan Assessment & Plan (1) Osteoarthritis of right shoulder: Code(s): M19.011 - Primary osteoarthritis, right shoulder Category: Medical (2) Injury of right rotator cuff: Code(s): S46.001A - Unspecified injury of muscle(s) and tendon(s) of the rotator cuff of right shoulder, initial encounter Category: Medical Plan Given the ongoing pain and limitations of the shoulder, A CT scan of the right shoulder was ordered to further evaluate the source of his pain as he does have hardware in his neck. Once the scan is complete, I will see him back to discuss the results. Orders: Orders XR shoulder RT min 2V Today M25.511 - Pain in right shoulder Patient Instructions: Scribed for Maite Victoria PA-C, by Alverto Rodriguez medical information officer, on 07/12/2024 at 3:15 PM EST.? I, Maite Victoria PA-C, have personally reviewed and agree with the information entered by the scribe. Coding Level of Care Code New Pt Level 3 (35107) Complex EM visit Add On G2211 Diagnoses Osteoarthritis of right shoulder M19.011 Injury of right rotator cuff S46.001A
[2024-07-12 15:05] VITALS: BMI 34.9
== END 2024-07-12 15:41 | disposition home or self-care (01) ==
PROVIDERS: PCP Internal Medicine; Visit Provider Physician Assistant
DX: M19.011 Primary osteoarthritis, right shoulder (principal); S46.001A Unspecified injury of muscle(s) and tendon(s) of the rotator cuff of right shoulder, initial encounter
CPT/HCPCS: 99213

== ENCOUNTER 2024-07-28 10:14 | Outpatient (AMB) | payer MEDICAID, SELFPAY ==
--- NOTE | 2024-07-28 10:15 | A.OFFVIS_ITS ---
Intake Visit Reasons: OV - Right hand numbness & tingling - EMG Review Intake Note: Mohit is a 58 year old right hand dominant male who presents today for an EMG/NCS of his right hand. Hx of Right cubital Tunnel Release 04/28/23 AR & Right Carpal Tunnel Release 03/04/18 NE. Patient reports ongoing numbness and tingling and pain of the right ring and small fingers for about five months now. He reports that his primary concern is his right small finger trigger finger, he explains that the finger is increasingly locking and catching. Trigger finger injection administered on 05/05/24 which only provided relief for a few weeks EMG/NCS done 06/24/24: IMPRESSION: 1. This is an abnormal study. 2. There is electrodiagnostic evidence for right ulnar neuropathy at the wrist. 3. There is electrodiagnostic evidence for right moderate-severe median neuropathy at the wrist. Consistent with Carpal Tunnel Syndrome despite surgery in the past. 4. There is no electrodiagnostic evidence for brachial plexopathy or cervical radiculopathy. Allergies SEAFOOD Allergy (Unknown, Uncoded 07/12/24 15:20) ANAPHYLAXIS HPI HPI OV - Right hand numbness & tingling - EMG Review: Details: Mohit is a 58 year old right hand dominant man who returns for a NCS review of his right hand numbness. His chief complaint today is of painful locking of his right small finger. He was given a steroid injection by THOMAS Cruz on 05/05/24. He says the injection was only helpful for ~2 weeks and he continues to have pain & locking of the finger. He also complains of numbness in all fingers of his right hand. Symptoms intermittent, but daily, along with a painful burning sensation in these fingers. He says this began ~5 months ago and is felt primarily at the tips of his fingers. He has a Hx of right ulnar nerve compression at the wrist. He has a Hx of a right cubital tunnel release & anterior transposition, DOS: 04/28/23, & left carpal tunnel release, DOS: 10/02/23. He has recurrent right carpal tunnel syndrome, S/P release by Dr. Leyva, DOS: 03/04/18 He also complains of pain in his right shoulder & elbow, worse at night. He is being seen by Orthopedics for this. He reports having multiple pinched nerves in his neck & back, as well as C-spine surgeries in the past. 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 More normal sensation in the median nerve distribution today in clinic No thenar or intrinsic wasting Good APB muscle belly firing and good finger cross Vascular: Cap refill brisk ROM: He can make a fist and extend all his digits Visible & palpable locking and catching of the small finger Tender over the small finger a1 travis Nerve Conduction Study: Right-side only IMPRESSION: 1. This is an abnormal study. 2. There is electrodiagnostic evidence for right ulnar neuropathy at the wrist. 3. There is electrodiagnostic evidence for right moderate-severe median neuropathy at the wrist. Consistent with Carpal Tunnel Syndrome despite surgery in the past. 4. There is no electrodiagnostic evidence for brachial plexopathy or cervical radiculopathy. Myriam Delaney MD, JENNIFER 06/24/24 Impression: Mild bilateral carpal tunnel syndrome Mild compression palsy of the right ulnar nerve at wrist Normal MG of the right C5-T1 innervated muscles Dr. Rico 03/26/23 Psych Appearance: grossly normal Affect: normal affect Attitude: cooperative Assessment & Plan Assessment & Plan (1) Neuropathy of right ulnar nerve at wrist: Code(s): G56.21 - Lesion of ulnar nerve, right upper limb Category: Medical (2) Trigger finger, right little finger: Code(s): M65.351 - Trigger finger, right little finger Category: Medical (3) Carpal tunnel syndrome of right wrist: Code(s): G56.01 - Carpal tunnel syndrome, right upper limb Category: Medical (4) History of carpal tunnel surgery of right wrist: Code(s): Z98.890 - Other specified postprocedural states Category: Surgical Plan Assessment & Plan: 1. Right small trigger finger, S/P injection by THOMAS Cruz Date of injection: 05/05/24 This is his chief complaint today He continues to complain of painful locking of the finger, with limited improvement following his injection I educated him about this condition I discussed operative and non-operative treatment options The patient would like to proceed with surgery The risks and benefits of operative treatment were discussed with the patient and the patient wishes to proceed with surgery. These risks include, but are not limited to risk of damage to blood vessels, nerves, tendons, infection, recurrence, incomplete relief of preoperative symptoms, persistent pain, possible need for further surgery and the risks associated with regional blocks and anesthesia. The plan is to take the patient to the operating room sometime in the next few weeks for the following procedures: 1. Right small finger trigger release, under local All of the preoperative paperwork including the consent was reviewed today. All the patient's questions were answered. The patient understands that they will be contacted by our flight crew scheduler soon to schedule this procedure He denies Diabetes, blood thinners, asthma, heart, lung, kidney issues 2. Right ulnar hand numbness for ~5 months after significant improvement following ulnar nerve transposition NCS shows ulnar neuropathy at the wrist 3. Right Cubital tunnel syndrome, S/P release & anterior transposition DOS: 04/28/23 NCS reports compression palsy of the ulnar nerve at the wrist With improved sensation to the ring and small fingers following surgery I ordered an US of his right ulnar nerve at the wrist/ Guyon's Canal today to assess for possible etiology of ulnar nerve compression at the wrist He is reportedly not able to undergo an MRI due to a previous spinal surgery He will follow up when completed for review 4. Right carpal tunnel syndrome, recurrent, moderate-severe Hx of right carpal tunnel release done by Dr. Leyva, DOS: 03/04/18 Pre-operatively with dense numbness, and significant improvement after surgery We will need to reassess the numbness and tingling in his right hand to decide what he needs. He could need a release of the ulnar nerve through Guyon's canal, he could need a repeat right carpal tunnel release, or he could potentially need both and we would need decide on an approach to that. 4. Left carpal tunnel syndrome, S/P release DOS: 10/02/23 Pre-operative symptoms intermittent, but daily, worse in the middle finger & at night Now with normal sensation & good resolution of his nighttime symptoms 5. Left hand numbness In the ulnar nerve distribution No evidence of cubital tunnel or cervical radiculopathy on NCS from 03/26/23 He has a Hx of multiple pinched nerves and C-spine surgery in the past after having a brick wall fall onto him ~15-20 years ago 6. Right anterior shoulder & elbow pain Worse with heavy lifting, overhead activity, and at night Following with THOMAS Arora for this Currently awaiting CT scan of his shoulder, as he is unable to have an MRI due to previous spinal surgery Scribed for Laurence Archuleta MD by Mal Friend, medical record technician, on 07/28/24 at 10:30 AM, EST. 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
== END 2024-07-28 10:46 | disposition home or self-care (01) ==
PROVIDERS: PCP Internal Medicine; Visit Provider Orthopaedic Surgery
DX: G56.21 Lesion of ulnar nerve, right upper limb (principal); M65.351 Trigger finger, right little finger; G56.01 Carpal tunnel syndrome, right upper limb; Z98.890 Other specified postprocedural states
CPT/HCPCS: 99214

== ENCOUNTER → 2024-07-28 10:14 | Outpatient (BNVA) | payer MEDICAID, SELFPAY | PROVIDERS: PCP Internal Medicine; Visit Provider Orthopaedic Surgery | DX: M65.351 Trigger finger, right little finger (principal); Z98.890 Other specified postprocedural states | CPT/HCPCS: 99212 ==

== ENCOUNTER 2024-08-03 13:56 | Outpatient (REF) | payer MEDICAID, SELFPAY ==
--- NOTE | ~2024-08-03 | US_ITS ---
EXAMINATION: US SOFT TISSUES RIGHT MEDIAL LOWER ARM CLINICAL INDICATION: Please evaluate right ulnar nerve as it passes through Guyon's canal, lesion of ulnar nerve, TECHNIQUE: Targeted ultrasound images were obtained by the communications writer of the area of concern as indicated by the patient along the medial lower arm. Radiologist was not in attendance. Images were later provided for interpretation. FINDINGS: No discrete mass or fluid collection identified in the generalized area of concern along the [id number] arm. Ulnar nerve does not visualize with certainty. US/US extremity nonvascular IMPRESSION: No discrete mass or fluid collection identified in the generalized area of concern along the mid to distal arm. Ulnar nerve does not visualize with certainty. This study was presented to me on August 30, 2024 for interpretation. PSA staff will provide results to referring provider at this time. Electronically signed by: Jaycee Leger MD 08/30/2024 09:16 AM [facility]
== END 2024-08-03 13:57 | disposition home or self-care (01) ==
LOC: HO.US 13:56
PROVIDERS: PCP Internal Medicine; Visit Provider Orthopaedic Surgery
DX: G56.21 Lesion of ulnar nerve, right upper limb (principal); G56.02 Carpal tunnel syndrome, left upper limb
CPT/HCPCS: 76882

== ENCOUNTER 2024-08-13 13:31 | Outpatient (REF) | payer MEDICAID, SELFPAY | END 2024-08-13 13:32 | disposition home or self-care (01) | LOC: HO.HAP 13:31 | PROVIDERS: Visit Provider Internal Medicine | DX: Z46.1 Encounter for fitting and adjustment of hearing aid (principal); H90.3 Sensorineural hearing loss, bilateral | CPT/HCPCS: V5011; V5020; V5160; V5261 ==

== ENCOUNTER 2024-08-26 06:58 | Outpatient (REF) | payer MEDICAID, SELFPAY ==
--- NOTE | ~2024-08-26 | CT_ITS ---
CLINICAL HISTORY: M12.819 - Other specific arthropathies, not elsewhere classified, unspec... CT right shoulder without contrast Comparison: None Findings: No acute fracture or dislocation identified. Small subchondral cyst superolateral humeral head. No other bony abnormalities identified. No radiopaque foreign body noted. Impression: No acute bony abnormality This document has been electronically signed by: Sergio Fong MD on 08/26/2024 19:39:40
== END 2024-08-26 06:59 | disposition home or self-care (01) ==
LOC: HO.CT 06:58
PROVIDERS: PCP Internal Medicine; Visit Provider Physician Assistant
DX: M12.811 Other specific arthropathies, not elsewhere classified, right shoulder (principal)
CPT/HCPCS: 73200

== ENCOUNTER → 2024-08-26 07:00 | Outpatient (BNV) | payer MEDICAID, SELFPAY | PROVIDERS: PCP Internal Medicine; Visit Provider Radiology Diagnostic Radiology | DX: M12.819 Other specific arthropathies, not elsewhere classified, unspecified shoulder (principal) | CPT/HCPCS: 73200 ==

== ENCOUNTER → 2024-08-30 19:04 | Outpatient (BNV) | payer MEDICAID, SELFPAY | PROVIDERS: PCP Internal Medicine; Visit Provider Radiology Diagnostic Radiology | DX: M19.011 Primary osteoarthritis, right shoulder (principal) | CPT/HCPCS: 73221 ==

== ENCOUNTER 2024-08-30 19:24 | Outpatient (REF) | payer MEDICAID, SELFPAY ==
--- NOTE | ~2024-08-30 | MR_ITS ---
EXAMINATION: MRI RIGHT SHOULDER WITHOUT CONTRAST HISTORY: M77.8 - Other enthesopathies, not elsewhere classified COMPARISON: Correlation is made with a CT of the right shoulder dated 08/26/2024. TECHNIQUE: Coronal T1, T2, and fat suppressed T2, axial fat suppressed proton density, and sagittal T2 weighted MR images of the right shoulder were obtained. FINDINGS: There is moderate osteoarthritis of the AC joint with cartilage loss, osteophyte formation, and subchondral marrow changes. There are subchondral cysts in the humeral head. The glenohumeral joint is maintained. There is no joint effusion. There is fraying and irregularity of the bursal surface of the distal supraspinatus tendon with associated increased T2 signal intensity. Findings are consistent with a partial bursal surface tear. No definite full-thickness tear. There is no tendon retraction or muscle atrophy. No significant fluid is seen in the subdeltoid/subacromial bursa. The infraspinatus, subscapularis, and teres minor tendons are intact. The biceps tendon is normally located. The glenoid labrum is grossly unremarkable in appearance. Evaluation is limited by lack of a joint effusion. MR/MR shoulder RT wo con IMPRESSION: 1. Moderate osteoarthritis of the AC joint. 2. Findings consistent with a partial bursal surface tear of the distal supraspinatus tendon. No definite evidence of a full-thickness tear. Electronically signed by: Chaka Linares MD 09/01/2024 08:54 AM [facility] [place]
== END 2024-08-30 19:25 | disposition home or self-care (01) ==
LOC: HO.MRI 19:24
PROVIDERS: PCP Internal Medicine; Visit Provider Physician Assistant
DX: M77.8 Other enthesopathies, not elsewhere classified (principal)
CPT/HCPCS: 73221

== ENCOUNTER 2024-09-09 13:30 | Outpatient (REF) | payer MEDICAID, SELFPAY | END 2024-09-09 13:31 | disposition home or self-care (01) | LOC: HO.HAP 13:30 | PROVIDERS: Visit Provider Internal Medicine | DX: Z13.89 Encounter for screening for other disorder (principal) ==

== ENCOUNTER 2024-10-18 13:58 | Outpatient (AMB) | payer MEDICAID, SELFPAY ==
--- NOTE | 2024-10-18 14:28 | MHC.OFFVIS ---
Intake Visit Reasons: OV-MRI shoulder RT-review Intake Note: Mohit is a 59 year old right hand dominant male who presents today for an MRI review of his right shoulder. Patient reports pain that radiates from the shoulder to the forearm with decreased ROM. Complains of numbness and tingling of the forearm. Patient was last seen with Maite who referred him for a CT Scan Allergies SEAFOOD Allergy (Unknown, Uncoded 07/12/24 15:20) ANAPHYLAXIS HPI HPI OV-MRI shoulder RT-review: Details: Mohit is a 59 year old right hand dominant male who presents today for an MRI review of his right shoulder. Patient reports pain that radiates from the shoulder to the forearm with decreased ROM. Complains of numbness and tingling of the forearm. Patient was last seen with Maite who referred him for a CT Scan. He has not tried PT or injections. He is taking Celebrex. He has pain at night especially and with overhead motion. He thinks he hurt his shoulder last summer. 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 Site was prepped using aseptic technique. Patient tolerated the procedure well. Shoulders, Hips, Knees, Shoulder Injection Large joint 01174: Right Shoulder Coding Procedure code (CPT) selection complete Results Reviewed Results Reviewed: I personally reviewed the MR images. IMPRESSION MRI 08/30/24: 1. Moderate osteoarthritis of the AC joint. 2. Findings consistent with a partial bursal surface tear of the distal supraspinatus tendon. No definite evidence of a full-thickness tear. Assessment & Plan Assessment & Plan (1) Injury of right rotator cuff: Code(s): S46.001A - Unspecified injury of muscle(s) and tendon(s) of the rotator cuff of right shoulder, initial encounter Category: Medical Plan: Right RTC bursal sided partial tear in 59 yo male with pain. I injected his shoulder and send him to PT. f/u p PT if pain persists. Orders: Orders PT Evaluation and Treatment Today S46.001A - Unspecified injury of muscle(s) and tendon(s) of the rotator cuff of right shoulder, initial encounter Coding Level of Care Code Est Pt Level 3 (01565) Diagnoses Injury of right rotator cuff S46.001A CPT Codes Shoulders, Hips, Knees, - Shoulder Injection Large joint 72371: Right Shoulder ([id number])
== END 2024-10-18 15:08 | disposition home or self-care (01) ==
PROVIDERS: PCP Internal Medicine; Visit Provider Orthopaedic Surgery
DX: S46.001A Unspecified injury of muscle(s) and tendon(s) of the rotator cuff of right shoulder, initial encounter (principal)
CPT/HCPCS: 20610; 99213

== ENCOUNTER → 2024-10-18 13:58 | Outpatient (BNVA) | payer MEDICAID, SELFPAY | PROVIDERS: PCP Internal Medicine; Visit Provider Orthopaedic Surgery | DX: S46.011A Strain of muscle(s) and tendon(s) of the rotator cuff of right shoulder, initial encounter (principal); X58.XXXA Exposure to other specified factors, initial encounter; Y93.9 Activity, unspecified; Y92.9 Unspecified place or not applicable; Y99.9 Unspecified external cause status | CPT/HCPCS: 20610; 99212; J0665; J1100; J2003 ==

== ENCOUNTER 2024-10-19 09:21 | Outpatient (REF) | payer MEDICAID, SELFPAY ==
--- NOTE | 2024-10-19 09:24 | EMG_ITS ---
Bilateral tibial and peroneal motor studies were performed. Bilateral superficial peroneal and sural sensory studies were performed. Tibial H reflexes were obtained, and paraspinal muscles were tested with a needle. IMPRESSION: Mild axonal sensory motor peripheral neuropathy. MD ADRIENNE Dc/MARY ALICE / [id number]
== END 2024-10-19 09:22 | disposition home or self-care (01) ==
LOC: HO.NEURO 09:21
PROVIDERS: PCP Internal Medicine; Visit Provider Internal Medicine
DX: G62.9 Polyneuropathy, unspecified (principal)
CPT/HCPCS: 95886; 95911

== ENCOUNTER 2024-10-25 06:35 | Day surgery (SDC) | payer MEDICAID, SELFPAY ==
[2024-10-25 06:57] VITALS: BP 121/71; PULSE 61; RESP 16; TEMP 36.1; O2SAT 98; BMI 36.2
--- NOTE | 2024-10-25 08:11 | MHC.SHP ---
Pre-Procedural Eval Section A - 24 Hr Update-Section A only Date of Service: 10/25/24 The patient is an INPATIENT: No Changes since office visit: No Cold of Flu in the past 2 weeks, No New Medical Problems, No Changes in Medication and No Patient answered all questions The patient has been examined within 24 hours of the surgical procedure. The History & Physical has been completed within 30 days and I have reviewed it.: Yes Section B - Complete if H&P > 30 days Chief Complaint: Trigger finger, right little finger Allergies: Allergies Allergy/AdvReac Type Severity Reaction Status Date / Time SEAFOOD Allergy Unknown ANAPHYLAXIS Uncoded 07/12/24 15:20 Plan Diagnosis/Plan: Unchanged I have reviewed the history and physical and performed a pertinent physical examination on my patient. No changes have occurred unless specified. Time Spent With Patient Time: Total time managing care of this patient today ____ minutes.
--- NOTE | 2024-10-25 08:12 | P.OP_ITS ---
Operative Note Operative Note Date of Service: 10/25/24 Narrative: Operative Note Preop diagnosis: 1. Right small finger Trigger finger Postop diagnosis: Same Procedure: 1. Right small finger A1 travis release Surgeon: Laurence Archuleta MD Marbleizing Machine Tender: None Anesthesia: local block using 1% lidocaine with epinephrine Findings: No locking or catching after A1 travis release EBL: Less than 5 mL Tourniquet time: None Specimens: None Complications: None Disposition: Brought to recovery room in stable condition Plan: Follow-up for 10-14 days for wound check and suture removal Indications: The patient is a 59 years old, with a right small finger trigger finger that has been unresponsive to nonoperative management. The risks and benefits of operative treatment including but not limited to risk of damage to blood vessels, nerves, tendons, infection, persistent pain, persistent symptoms, recurrence or possible need for additional surgery were discussed with the patient and the patient wishes to proceed with surgery. Procedure: Once consent was obtained a local block was performed in the preop area using a combination of 1% lidocaine with epinephrine. The patient was then brought back to the operating suite and placed on the operative table in supine position. The right upper extremity was prepped and draped in a standard surgical fashion. Once assured that we had a good block, a 1.5 cm oblique incision was made centered over the A1 travis of the right small finger . The incision was made through the skin to the subcutaneous tissues using a #15 blade. Careful dissection was made down to the level of the A1 travis using tenotomy scissors, with care being taken to protect the nearby neurovascular structures. A longitudinal incision was made in the A1 travis 1st using a #15 blade, then using tenotomy scissors under direct visualization. The A1 travis was noted to be thickened. Following our A1 travis release, we no longer saw any locking or catching of the digit with flexion and extension. Once satisfied with our A1 travis release the wound was copiously irrigated with normal saline and hemostasis was obtained with a brief period of local pressure. The skin edges were reapproximated with some 5.0 nylon suture material and a sterile dressing was applied. The patient appears to have tolerated the procedure well and with no complications. All digits were well vascularized at the conclusion of the case.
[2024-10-25 10:18] VITALS: BP 110/68; PULSE 56; RESP 18; O2SAT 94
== END 2024-10-25 10:20 | disposition home or self-care (01) ==
PROVIDERS: PCP Internal Medicine; Visit Provider Orthopaedic Surgery
PROC: (CPT 26055; principal; 2024-10-25 08:30)
DX: M65.351 Trigger finger, right little finger (principal); R20.0 Anesthesia of skin; R20.2 Paresthesia of skin; M19.09 Primary osteoarthritis, other specified site; I10 Essential (primary) hypertension; J45.909 Unspecified asthma, uncomplicated; Z98.890 Other specified postprocedural states
CPT/HCPCS: 26055; J0171; J2003

== ENCOUNTER → 2024-10-25 06:35 | Outpatient (BNV) | payer MEDICAID, SELFPAY | PROVIDERS: PCP Internal Medicine; Visit Provider Orthopaedic Surgery | DX: M65.351 Trigger finger, right little finger (principal) | CPT/HCPCS: 26055 ==

== ENCOUNTER 2024-11-09 10:41 | Outpatient (AMB) | payer MEDICAID, SELFPAY ==
[2024-11-09 10:46] VITALS: BMI 36.1
--- NOTE | 2024-11-09 10:46 | A.OFFVIS_ITS ---
Vital Signs 11/09/24 10:46 Height 5 ft 5 in Weight 217 lb BMI 36.1 Handedness Right Intake Visit Reasons: PO RT SF trigger 10/25/24 AR Intake Note: Mohit is a 58 year old right hand dominant male who presents for a post operative visit s/p right small finger A1 travis release DOS: 10/25/24 w/ Dr Laurence Archuleta. Patient reports he has not been having catching and locking of his right 5th digit. Denies numbness and tingling. Denies any discharge from incision site. Sutures removed ad steri strips applied. Site appears erythematic and there was a small amount of yellow discharge with suture removal. Allergies SEAFOOD Allergy (Unknown, Uncoded 11/09/24 10:46) ANAPHYLAXIS HPI HPI PO RT SF trigger 10/25/24 AR: Details: Mohit is a 58 year old right hand dominant male who presents for a post operative visit s/p right small finger A1 travis release DOS: 10/25/24 w/ Dr Laurence Archuleta. Patient reports he has not been having catching and locking of his right 5th digit. Denies numbness and tingling. Denies any discharge from incision site. Sutures removed ad steri strips applied. Site appears erythematous and there was a small amount of yellow discharge with suture removal. 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 Neuro: Normal sensation of the tips of all digits of the right hand at this time Vascular: Cap refill brisk Pain: Mild tenderness to palpation about the incision site on the volar right wrist ROM: Patient is able to make a closed fist and extend all digits of the right hand fully Skin: Well-approximated incision site noted on the volar right wrist No lacerations or abrasions. General: Mild erythema and scant purulence drainage noted in the suture sites of the in cision of the right wrist Psych: Appears grossly normal Affect normal Attitude cooperative Assessment & Plan Assessment & Plan (1) Trigger finger, right little finger: Code(s): M65.351 - Trigger finger, right little finger Category: Medical Plan 1. Status post right small finger trigger release DOS 10/25/2024 Evidence of suture abscess At this time, patient was prescribed a one-week course of Augmentin for s uperficial infection around sutures Patient will follow-up in 1 week for wound check Patient is educated on typical recovery course from surgery, as otherwise he appears to be recovering very well Follow-up in 1 week for wound check, sooner with any acute concerns Medications: New amoxicillin-pot clavulanate 875-125 mg 1 tab PO BID 7 days 14 tabs 0RF Coding Level of Care Code Global (67128) Diagnoses Trigger finger, right little finger M65.351
== END 2024-11-09 11:06 | disposition home or self-care (01) ==
LOC: HO.HOS 10:42
PROVIDERS: PCP Internal Medicine
DX: M65.351 Trigger finger, right little finger (principal)
CPT/HCPCS: 99024

== ENCOUNTER → 2024-11-09 10:41 | Outpatient (BNVA) | payer MEDICAID, SELFPAY | PROVIDERS: PCP Internal Medicine | DX: Z47.89 Encounter for other orthopedic aftercare (principal); Z98.890 Other specified postprocedural states | CPT/HCPCS: 99212 ==

== ENCOUNTER 2024-11-16 15:40 | Outpatient (REF) | payer MEDICAID, SELFPAY | END 2024-11-16 15:41 | disposition home or self-care (01) | LOC: HO.SH 15:40 | PROVIDERS: Visit Provider Internal Medicine | DX: Z13.89 Encounter for screening for other disorder (principal) ==

== ENCOUNTER 2024-11-17 14:44 | Outpatient (AMB) | payer MEDICAID, SELFPAY ==
--- NOTE | 2024-11-17 15:05 | A.OFFVIS_ITS ---
Vital Signs 11/17/24 15:08 Height 5 ft 5 in Weight 217 lb BMI 36.1 Intake Visit Reasons: PO RT SF trigger 10/25/24 AR Intake Note: Mohit is a 58 year old right hand dominant male who presents for a post operative visit s/p right small finger A1 travis release DOS: 10/25/24 w/ Dr Laurence Archuleta. Patient reports that the erythema and discharge noted at suture removal at previous evaluation has completely resolved. Patient reports he is doing well, having no pain at the moment. Allergies SEAFOOD Allergy (Unknown, Uncoded 11/09/24 10:46) ANAPHYLAXIS HPI HPI PO RT SF trigger 10/25/24 AR: Details: Mohit is a 58 year old right hand dominant male who presents for a post operative visit s/p right small finger A1 travis release DOS: 10/25/24 w/ Dr Laurence Archuleta. Patient reports he is doing well, having no pain at the moment. 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 Neuro: Normal sensation of the tips of all digits of the right hand at this time Vascular: Cap refill brisk Pain: Mild tenderness to palpation about the incision site on the volar right wrist ROM: Patient is able to make a closed fist and extend all digits of the right hand fully Skin: Well-approximated incision site noted on the volar right wrist No lacerations or abrasions. General: Erythema and purulence noted at last visit have completely resolved Psych: Appears grossly normal Affect normal Attitude cooperative Assessment & Plan Assessment & Plan (1) Trigger finger, right little finger: Code(s): M65.351 - Trigger finger, right little finger Category: Medical Plan 1. Status post right small finger trigger release DOS 10/25/2024 Patient appears to be recovering well postoperatively Patient is educated about the typical recovery course Suture abscess appears to have resolved completely No further acute follow-up indicated for this surgery, as he appears to be recovering well and without further issue Patient will follow-up as needed with any acute concerns Coding Level of Care Code Global (19390) Diagnoses Trigger finger, right little finger M65.351
[2024-11-17 15:08] VITALS: BMI 36.1
== END 2024-11-17 15:15 | disposition home or self-care (01) ==
LOC: HO.HOS 14:45
PROVIDERS: PCP Internal Medicine
DX: M65.351 Trigger finger, right little finger (principal)
CPT/HCPCS: 99024

== ENCOUNTER → 2024-11-17 14:44 | Outpatient (BNVA) | payer MEDICAID, SELFPAY | PROVIDERS: PCP Internal Medicine | DX: Z09 Encounter for follow-up examination after completed treatment for conditions other than malignant neoplasm (principal); Z87.39 Personal history of other diseases of the musculoskeletal system and connective tissue; Z98.890 Other specified postprocedural states | CPT/HCPCS: 99212 ==

== ENCOUNTER 2024-12-18 07:34 | Outpatient (REF) | payer MEDICAID, SELFPAY ==
[2024-12-18 08:40] LABS: Estimated Average Glucose 114 mg/dL; Hemoglobin A1C 152.7545 umol/L; Hemoglobin A1c % 5.6 % (<6.0); Total Hemoglobin (HGBA1C) 4018.3985 umol/L
[2024-12-18 08:46] LABS: Alanine Aminotransferase 32 U/L (0-40); Albumin Level 4.2 g/dL (3.5-5.0); Alkaline Phosphatase 88 U/L (39-117); Anion Gap 10 (12-20); Aspartate Amino Transferase 32 U/L (5-37); Blood Urea Nitrogen 20 mg/dL (9-16); Calcium 8.9 mg/dL (8.4-10.2); Carbon Dioxide 30 mmol/L (22-29); Chloride 107 mmol/L (96-108); Estimated Glomerular Filt Rate > 60; Glucose Random 111 mg/dL (60-115); Potassium 3.9 mmol/L (3.3-5.1); Sodium 143 mmol/L (135-145); Total Protein 6.7 g/dL (6.5-8.0)
[2024-12-18 09:08] LABS: Prostate Specific Antigen 1.69 ng/mL (<0.05-4.0)
== END 2024-12-18 07:35 | disposition home or self-care (01) ==
LOC: HO.LAB 07:34
PROVIDERS: PCP Internal Medicine; Visit Provider Internal Medicine
DX: Z00.00 Encounter for general adult medical examination without abnormal findings (principal); E78.00 Pure hypercholesterolemia, unspecified; I10 Essential (primary) hypertension; N40.0 Benign prostatic hyperplasia without lower urinary tract symptoms; R73.01 Impaired fasting glucose
CPT/HCPCS: 36415; 80053; 83036; 84153

== ENCOUNTER 2025-03-23 15:31 | Outpatient (REF) | payer MEDICAID, SELFPAY ==
--- NOTE | 2025-03-23 15:57 | MHC.AU.HA3 ---
Hearing Instrument Follow-Up- Binaural Date of Visit: 03/23/25 Right Ear: Ranjit, , Color, Serial Number: Galilea Chris [id number] SN: [id number] Color: Di Therapeutic Massage Technician Repair Warranty: 08/28/2027 Therapeutic Massage Technician Loss and Damage Warranty: 08/28/2027 [facility] Service Plan: 08/13/2025 Battery Size: Rechargeable Spanish Speaking Nanny/Slim Tube: 2M Earmold/Dome/CShell/SlimTip:Medium vented dome Type of Wax Guard: CeruStop Dispensed By: [facility] Date of Fittin08/13/2024 Left Ear: Ranjit, Model, Color, Serial Number: Galilea Chris [id number] SN: [id number] Color: Josée Therapeutic Massage Technician Repair Warranty: 08/28/2027 Therapeutic Massage Technician Loss and Damage Warranty: 08/28/2027 [facility] Service Plan: 08/13/2025 Battery Size: Rechargeable Spanish Speaking Nanny/Slim Tube: 2M Earmold/Dome/CShell/SlimTip: Medium vented dome Type of Wax Guard: CeruStop Dispensed By: [facility] Date of Fittin08/13/2024 Follow-Up Summary: Seen for hearing aid maintenance. Mohit reports no problems with the hearing aids. Hearing aids were very clean. Cleaned aids, replaced domes and wax guards, ran through dehumidifier. Listening check positive. Mohit reports he only uses the hearing aids when he goes out. Reports he was told he does not need to wear them at home. Counseled on importance of consistent hearing aid use. Encouraged daily wear. Recommendations: Recommendations: Hearing instrument follow-up or maintenance as needed. Diagnosis Code(s): Primary Diagnosis: H90.3 Bilateral Sensorineural Hearing Loss Signature Provider: Gage Finch, [facility]
--- OUTSIDE RECORDS SUMMARY | 2025-03-23 15:58 | XMS_ITS | Patient Health Record ---
Author Organization [facility] Address [address] [place] [address] Care Team Providers Care Electrical Installation Inspector Name Role Phone Peggy Pitt Primary Care Provider Chaka Dickerson Unavailable [phone] Allergies Allergen (clinical drug ingredient) Drug/Non Drug Allergy documented on EMR Reaction Allergy Type Onset Date Status Seafood seafood (uncoded) Unknown Allergy Ac tive Reason For Referral No Information Medications Medication SIG (Take, Route, Frequency, Duration) Notes Start Date End Date Status Quinapril HCl 40 MG Oral for 30 Active hydroCHLOROthiazide 25 MG Oral for 30 Active Pravastatin Sodium 40 MG Oral for 30 Active amLODIPine Besylate 5 MG Oral for 30 Active Colyte w Flavor Packs 240 GM as directed Orally as directed for 1 day(s) 05/18/2015 Active Problems Problem Type SNOMED Code ICD Code Onset Dates Problem Status W/U Status Risk Notes Problem Constipation (97631618) Constipation (564.00) Active confirmed Problem Colon cancer screening (744263578) Colon cancer screening (V76.51) Active confirmed Problem Long-term current use of drug therapy (461243035) Encounter for long-term (current) use of medications (V58.69) Active confirmed Plan Of Treatment Future Test Test Name Order Date COLONOSCOPY 05/17/2015 Insurance Providers Payer Name Payer Address Payer Phone Subscriber Number Group Number Insured Name Patient Relationship to Insured Coverage Start Date Coverage End Date [facility] [address] [place] [phone] [id number] NADYA ROSALES Self - patient is the insured MEDICAID OF [facility] [address] [place] [id number] [phone] [id number] ARUN Morse NADYA Self - patient is the insured Medical (General) History Medical History History ICD Code Denies [place],DM,CVA,Lung disease,renal dise ase Hypertension Hyperlipidemia Back pain Surgical History Surgery Date(Month/Year) Neck surgery for a disc 2014
== END 2025-03-23 15:32 | disposition home or self-care (01) ==
LOC: HO.HAP 15:31
PROVIDERS: Visit Provider Internal Medicine
DX: Z13.89 Encounter for screening for other disorder (principal)

== ENCOUNTER 2025-06-17 06:01 | Outpatient (REF) | payer MEDICAID, SELFPAY ==
--- OUTSIDE RECORDS SUMMARY | 2025-06-17 06:03 | XMS_ITS | Patient Health Record ---
Author Organization [facility] Address [address] [place] [address] Care Team Providers Care Agribusiness Professor Name Role Phone Peggy Pitt Primary Care Provider Chaka Dickerson Unavailable [phone] Allergies Allergen (clinical drug ingredient) Drug/Non Drug Allergy documented on EMR Reaction Allergy Type Onset Date Status Seafood seafood (uncoded) Unknown Allergy Ac tive Reason For Referral No Information Medications Medication SIG (Take, Route, Frequency, Duration) Notes Start Date End Date Status Quinapril HCl 40 MG Oral; Duration: 30 Active hydroCHLOROthiazide 25 MG Oral; Duration: 30 Active Pravastatin Sodium 40 MG Oral; Duration: 30 Active amLODIPine Besylate 5 MG Oral; Duration: 30 Active Colyte w Flavor Packs 240 GM as directed Orally as directed; Duration: 1 day(s) 05/18/2015 Active Problems Problem Type SNOMED Code ICD Code Onset Dates Problem Status W/U Status Risk Notes Problem Constipation (00294012) Constipation (564.00) Active confirmed Problem Colon cancer screening (205504194) Colon cancer screening (V76.51) Active confirmed Problem Long-term current use of drug therapy (711952831) Encounter for long-term (current) use of medications (V58.69) Active confirmed Plan Of Treatment Future Test Test Name Order Date COLONOSCOPY 05/17/2015 Insurance Providers Payer Name Payer Address Payer Phone Subscriber Number Group Number Insured Name Patient Relationship to Insured Coverage Start Date Coverage End Date [facility] [address] [place] [phone] [id number] NADYA ROSALES Self - patient is the insured MEDICAID OF [employer] [address] [place] [address] [id number] ARUN Morse NADYA Self - patient is the insured Medical (General) History Medical History History ICD Code Denies [place],DM,CVA,Lung disease,renal dise ase Hypertension Hyperlipidemia Back pain Surgical History Surgery Date(Month/Year) Neck surgery for a disc 2014
[2025-06-17 08:01] LABS: Alanine Aminotransferase 39 U/L (0-40); Albumin Level 4.7 g/dL (3.5-5.0); Alkaline Phosphatase 75 U/L (39-117); Anion Gap 11 (12-20); Aspartate Amino Transferase 41 U/L (5-37); Blood Urea Nitrogen 22 mg/dL (9-16); Calcium 9.1 mg/dL (8.4-10.2); Carbon Dioxide 29 mmol/L (22-29); Chloride 106 mmol/L (96-108); Cholesterol 128 mg/dL (<200); Estimated Glomerular Filt Rate > 60; HDL Cholesterol 39 mg/dL (>40); Potassium 3.8 mmol/L (3.3-5.1); Sodium 142 mmol/L (135-145); Total Protein 7.0 g/dL (6.5-8.0); Triglycerides 118 mg/dL (<150)
== END 2025-06-17 06:02 | disposition home or self-care (01) ==
LOC: HO.LAB 06:01
PROVIDERS: PCP Internal Medicine; Visit Provider Internal Medicine
DX: E78.00 Pure hypercholesterolemia, unspecified (principal); F51.5 Nightmare disorder; G62.89 Other specified polyneuropathies; I10 Essential (primary) hypertension
CPT/HCPCS: 36415; 80053; 80061

== ENCOUNTER 2025-07-19 08:46 | Emergency (ER) | payer MEDICAID, SELFPAY ==
--- NOTE | ~2025-07-19 | XR_ITS ---
EXAMINATION: XR CHEST CLINICAL INFORMATION: back pain COMPARISON: December 02, 2022 TECHNIQUE: PA and lateral views. FINDINGS: 2 mm calcified pulmonary nodule, left upper hemithorax. Pulmonary reticular pattern. No consolidation, pleural effusion or pneumothorax. Cardiomediastinal silhouette size is normal. Multilevel thoracolumbar spondylosis. Metallic plate in the lower anterior cervical spine no fully included in the [id number]. XR/XR chest 2V IMPRESSION: No acute airspace disease. 2 mm granuloma, left upper lung lobe. Probable chronic interstitial lung disease. Multilevel spondylosis. Electronically signed by: Manuel Bang MD 07/19/2025 09:33 AM EST
[2025-07-19 08:51] VITALS: BP 150/80; PULSE 69; RESP 20; TEMP 35.7; O2SAT 97; BMI 38.5
--- NOTE | 2025-07-19 08:53 | ED.GENADULT ---
HPI - General Adult General Chief complaint: General Medical Stated complaint: SOB Time Seen by Provider: 07/19/25 11:05 Source: patient, family (Significant other at bedside) and old records reviewed Mode of arrival: ambulatory Limitations: no limitations History of Present Illness ED Provider: LIANG Arrington HPI narrative: 60-year-old male with medical history of right-sided carpal tunnel, osteoarthritis of right shoulder, right rotator cuff injury, right-sided cubital tunnel syndrome, presents to the ED due to acute on chronic pain of the right shoulder. Patient states he has chronic rotator cuff injury has had MRI and cortisone injection approximately 5 months ago. Patient states over the past month, the pain has been worsening is now radiating into the R side anterior pectoralis muscle and down the R arm and a pinching sensation of the posterior shoulder when taking a deep breath in. This pain is exacerbated with movement. No SOB or pain when sitting still, only when pain is exacerbated. Patient states he was seen by his primary care doctor a few days ago who instructed him to come to ED if pain worsened. Denies recent injury/fall/trauma, fevers, chills, chest pain, shortness of breath, difficulty breathing, abdominal pain, nausea, vomiting, diarrhea, headaches, visual changes, urinary symptoms MD complaint: R shoulder pain Related Data Home Medications ?Medication ?Instructions ?Recorded ?Confirmed amlodipine 10 mg tablet 10 mg PO DAILY 12/02/22 10/25/24 atorvastatin 20 mg tablet 20 mg PO BEDTIME 12/02/22 10/25/24 gabapentin 100 mg capsule 100 mg PO BEDTIME 12/02/22 10/25/24 hydrochlorothiazide 25 mg tablet 25 mg PO DAILY 12/02/22 10/25/24 lisinopril 30 mg tablet 30 mg PO DAILY 12/02/22 10/25/24 terbinafine HCl 250 mg tablet 250 mg PO DAILY 05/25/24 10/25/24 Previous Rx's ?Medication ?Instructions ?Recorded celecoxib 200 mg capsule (Celebrex) 200 mg PO BID #180 caps 07/01/24 oxycodone-acetaminophen 5 mg-325 1 tab PO Q6H PRN Pain #5 tabs 10/25/24 mg tablet amoxicillin 875 mg-potassium 1 tab PO BID 7 days #14 tabs 11/09/24 clavulanate 125 mg tablet Allergies Allergy/AdvReac Type Severity Reaction Status Date / Time SEAFOOD Allergy Unknown ANAPHYLAXIS Uncoded 07/19/25 08:56 Review of Systems Review of Systems: Yes all other systems are reviewed and are negative [facility] Past Medical History Attestation statement: The following information was validated with the patient. 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 HEENT: ?NC, AT. MMM. EOMI, clear conjunctiva, oropharynx clear. NECK: ?Supple without lymphadenopathy.? No stiffness or restricted ROM. HEART:? Normal rate and regular rhythm, normal S1/S2, no m/r/g LUNGS:? CTAB, moving air well. No crackles or wheezes are heard. ABDOMEN: ?Soft, nontender, nondistended with good bowel sounds heard. BACK: No CVAT, no obvious deformity. TTP of anterior and posterior rotator cuff and surrounding musculature, postive lift off test, radial pulses 2+, full ROM intact however does have pain when in extension, TTP of infraspinatus, and subscapularis, no Midline spinal tenderness EXTREMITIES: ?Without cyanosis, clubbing or edema. NEUROLOGICAL: ?Grossly nonfocal. Alert and oriented, moving all 4 extremities. Observed to ambulate with normal gait. Skin: ?Warm and dry without any rash. Course Course Course Narrative: Rapid medical examination performed in triage by Thalia Claros PA-C: Patient is a 60 year old assigned male at presenting to the emergency department with right sided back pain. Patient states that he was told he may have a lung issue because of where his pain is. Detailed physical exam and review of systems are deferred to the senior marketing specialist. Labs and imaging ordered. Patient placed back in the waiting room pending room availability and results. Medical Decision Making Medical Decision Making MDM Narrative: 60-year-old male with medical history of right-sided carpal tunnel, osteoarthritis of right shoulder, right rotator cuff injury, right-sided cubital tunnel syndrome, presents to the ED due to acute on chronic pain of the right shoulder. Patient states he has chronic rotator cuff injury has had MRI and cortisone injection approximately 5 months ago. Patient states over the past month, the pain has been worsening is now radiating into the R side anterior pectoralis muscle and down the R arm and a pinching sensation of the posterior shoulder when taking a deep breath in. This pain is exacerbated with movement. No SOB or pain when sitting still, only when pain is exacerbated. VS on initial observation-BP 150/80, pulse rate of 69, respiratory rate of 20, afebrile with oral temp of 96.2?, O2 saturation 97% on room air. On physical exam patient is nontoxic appearing, with TTP of anterior and posterior rotator cuff and surrounding musculature, postive lift off test, radial pulses 2+, full ROM intact however does have pain when in extension, TTP of infraspinatus, and subscapularis, no Midline spinal tenderness. Lungs clear to auscultation bilaterally no increased work of breathing, no accessory muscle use,, cardiac exam reveals normal rate and rhythm without murmurs/rubs/gallops, abdomen is soft, nondistended, nontender. Labs without leukocytosis/leukopenia, no evidence of anemia, total bilirubin elevated at 1.1, no electrolyte abnormalities. CXR reveals 2 mm calcified pulmonary nodule of the left upper lung, pulmonary reticular pattern, no pneumothorax, infiltrates, consolidations, cardiomegaly Patient with acute on chronic pain to the right shoulder with known rotator cuff injury. Patient had MRI done 08/2024, received cortisone injections into the right shoulder approximately 5 months ago. Patient with 1 month of exacerbated pain of the right shoulder now radiating into the right pectoralis muscle, and down the right arm with mild and intermittent numbness and tingling. Patient without recent injury, afebrile in the department. Physical exam with positive lift-off test. Patient symptoms most consistent with rotator cuff injury. Patient will be discharged with 5 day course of prednisone for anti inflammation. I counseled patient on using 500 mg Tylenol for pain management, patient on celecoxib for arthritis pain, he can continue to take this for his musculoskeletal pain as well. I have placed referral for orthopedics where the patient to follow up with for further evaluation of rotator cuff injury. Patient well enough to go home for self-care today and has been medicated with 975 mg p.o. Tylenol as he took a dose of Celecoxib before coming into the department. Patient and his significant other are in agreement with the plan. Differential Diagnosis Differential Diagnoses: The differential diagnosis associated with the presentation includes Shoulder fracture Shoulder dislocation Rotator cuff injury Thoracic muscle strain Admission/Observation Consideration of admission/observation: Escalation of care including admission/observation considered Lab Data MDM Lab Attestation statement: I reviewed the patient's lab results. 07/19/25 09:13 07/19/25 09:13 Labs: Lab Results 07/19/25 Range/Units 09:13 WBC 6.5 (4.8-10.8) X10*3/uL RBC 5.56 (4.60-5.80) X10*6/uL Hgb 16.9 (14.0-18.0) g/dl Hct 49.3 (42.0-52.0) % MCV 88.7 (80.0-98.0) fL MCH 30.4 (27.0-33.0) pg MCHC 34.3 (31.0-36.0) g/dl RDW 12.8 (11.0-16.0) % Plt Count 245 (160-400) X10*3/uL MPV 9.3 L (9.4-12.4) fL Immature Gran % (Auto) 0.5 H (0.0-0.4) % Neut % (Auto) 46.4 (45-73) % Lymph % (Auto) 40.1 H (20-40) % [place] % (Auto) 8.6 (2-11) % Eos % (Auto) 3.2 (0-4) % Baso % (Auto) 1.2 (0-2) % Lymph # (Auto) 2.6 (1.2-4.9) X10*3/uL [place] # (Auto) 0.6 (0.1-1.2) X10*3/uL Eos # (Auto) 0.2 (0.0-0.4) X10*3/uL Baso # (Auto) 0.1 (0.0-0.2) X10*3/uL Abs Immat Gran (auto) 0.03 (0.00-0.03) X10*3/uL Absolute Neuts (auto) 3.0 (2.0-8.3) x10*3/uL Absolute Nucleated RBC 0.000 (0.0-0.012) X10*3/uL Nucleated RBC % (auto) 0.0 (0.0-0.2) /100WBC Sodium 142 (135-145) mmol/L Potassium 4.0 (3.3-5.1) mmol/L Chloride 106 (96-108) mmol/L Carbon Dioxide 29 (22-29) mmol/L Anion Gap 11 L (12-20) BUN 24 H (9-16) mg/dL Creatinine 0.93 (0.5-1.4) mg/dL Estim Creat Clear Calc 89.9 Estimated GFR > 60 Random Glucose 111 (60-115) mg/dL Calcium 9.5 (8.4-10.2) mg/dL Total Bilirubin 1.1 H (0.0-1.0) mg/dL AST 29 (5-37) U/L ALT 32 (0-40) U/L Alkaline Phosphatase 72 (39-117) U/L Total Protein 7.2 (6.5-8.0) g/dL Albumin 4.7 (3.5-5.0) g/dL Independent Interpretation I performed an independent interpretation of an: Plain X-Ray Interpretation: I personally interpreted the CXR which was negative for cardiomegaly, pneumothorax, infiltrates, consolidations, however does reveal pulmonary nodules, I agree with the radiologist's interpretation Radiology Impression Discussion of test interpretation with radiology: I have reviewed the radiologist's reading. Radiologist Impression: CXR FINDINGS: 2 mm calcified pulmonary nodule, left upper hemithorax. Pulmonary reticular pattern. No consolidation, pleural effusion or pneumothorax. Cardiomediastinal silhouette size is normal. Multilevel thoracolumbar spondylosis. Metallic plate in the lower anterior cervical spine no fully included in the [id number]. XR/XR chest 2V IMPRESSION: No acute airspace disease. 2 mm granuloma, left upper lung lobe. Probable chronic interstitial lung disease. Multilevel spondylosis. Electronically signed by: Manuel Bang MD 07/19/2025 09:33 AM EST Dictated By: Manuel Chandler MD Signed By: <Electronically signed by Manuel Barrow MD in OV> 07/19/25 0933 Independent Historian Clinical information obtained from an independent historian. History obtained from or confirmed by: Spouse (Significant other at bedside) External Record Review External record reviewed: Inpatient record, Office record, Outpatient record, Prior outpatient labs and Prior outpatient radiology Chronic Conditions Patient?s care impacted by: Hypertension and Other (Rotator cuff injury, osteoarthritis, cubital tunnel syndrome, carpal tunnel syndrome,) Discharge Plan Discharge Clinical Impression: Rotator cuff injury Patient Disposition: Home, Self-Care Instructions: Rotator Cuff Injury Exercises (DC), Rotator Cuff Injury (ED) Additional Instructions: You were evaluated in the emergency department today due to right shoulder pain extending into the right pectoralis muscle, and down the right arm. Your chest x-ray reveals a 2 mm calcified pulmonary nodule, that is stable. The x-ray was negative for infiltrates, consolidations indicative of infection. Your lab work was reassuring as you did not have any considerable elevation or decrease in your white blood cell count indicative of infection. Your symptoms are most likely due to rotator cuff damage. You are being prescribed a 5 day course of prednisone which is a steroid for anti inflammation. To manage pain at home you can take 500 mg of Tylenol, with a dose of your celecoxib that you take for arthritis pain. Additionally you can ice and/or apply heat to the affected area, and participate in gentle stretching and exercises. I have placed referral to Orthopedics for you, please call their office to establish yourself for further evaluation of rotator cuff injury. Please return to the emergency department if you experience chest pain, palpitations, shortness of breath, difficulty breathing, fevers over 100.4?, worsening pain of your right shoulder, decreased sensation of the right arm/hand, or any new/worsening/concerning symptoms. Prescriptions: No Action oxycodone-acetaminophen 5-325 mg Tablet 1 tab PO Q6H PRN (Reason: Pain) Qty: 5 0RF Rx Instructions: Partial Fill upon patient request. hydrochlorothiazide 25 mg tablet 25 mg PO DAILY gabapentin 100 mg capsule 100 mg PO BEDTIME amlodipine 10 mg tablet 10 mg PO DAILY atorvastatin 20 mg tablet 20 mg PO BEDTIME lisinopril 30 mg tablet 30 mg PO DAILY celecoxib [Celebrex] 200 mg capsule 200 mg PO BID Qty: 180 2RF terbinafine HCl 250 mg tablet 250 mg PO DAILY amoxicillin-pot clavulanate 875-125 mg tablet 1 tab PO BID 7 Days Qty: 14 0RF Referrals: [facility] [place] [facility] [Provider Group] Print Language: Monegasque
[2025-07-19 09:23] LABS: MANUAL DIFF FLAG NO
[2025-07-19 09:25] LABS: Hematocrit 49.3 % (42.0-52.0); Hemoglobin 16.9 g/dl (14.0-18.0); Imm Gran Abs Auto 0.03 X10*3/uL (0.00-0.03); Imm Gran Pct Auto 0.5 % (0.0-0.4); Lymphocytes Absolute Auto 2.6 X10*3/uL (1.2-4.9); Mean Corpuscular HGB Conc 34.3 g/dl (31.0-36.0); Mean Corpuscular Hemoglobin 30.4 pg (27.0-33.0); Mean Corpuscular Volume 88.7 fL (80.0-98.0); NRBC Abs Auto 0.000 X10*3/uL (0.0-0.012); NRBC Pct Auto 0.0 /100WBC (0.0-0.2); Platelet Count 245 X10*3/uL (160-400); Red Blood Count 5.56 X10*6/uL (4.60-5.80); White Blood Count 6.5 X10*3/uL (4.8-10.8)
[2025-07-19 09:43] LABS: Alanine Aminotransferase 32 U/L (0-40); Albumin Level 4.7 g/dL (3.5-5.0); Alkaline Phosphatase 72 U/L (39-117); Anion Gap 11 (12-20); Aspartate Amino Transferase 29 U/L (5-37); Blood Urea Nitrogen 24 mg/dL (9-16); Calcium 9.5 mg/dL (8.4-10.2); Carbon Dioxide 29 mmol/L (22-29); Chloride 106 mmol/L (96-108); Creatinine Clr Calc Pharmacy 89.9; Estimated Glomerular Filt Rate > 60; Potassium 4.0 mmol/L (3.3-5.1); Sodium 142 mmol/L (135-145); Total Protein 7.2 g/dL (6.5-8.0)
[2025-07-19 11:48] VITALS: BP 150/80; PULSE 69; RESP 20; TEMP 35.7; O2SAT 97
== END 2025-07-19 11:49 | disposition home or self-care (01) ==
PROVIDERS: Physician Assistant Medical; Emergency Provider Emergency Medicine; PCP Internal Medicine
DX: S46.001A Unspecified injury of muscle(s) and tendon(s) of the rotator cuff of right shoulder, initial encounter (principal); X58.XXXA Exposure to other specified factors, initial encounter; Y93.9 Activity, unspecified; Y92.9 Unspecified place or not applicable; M54.9 Dorsalgia, unspecified; R06.02 Shortness of breath; J84.10 Pulmonary fibrosis, unspecified
CPT/HCPCS: 36415; 71046; 80053; 85025; 99283

== ENCOUNTER → 2025-07-19 08:58 | Outpatient (BNV) | payer MEDICAID, SELFPAY | PROVIDERS: PCP Internal Medicine; Visit Provider Radiology Diagnostic Radiology | DX: J84.10 Pulmonary fibrosis, unspecified (principal); M47.9 Spondylosis, unspecified | CPT/HCPCS: 71046 ==

== ENCOUNTER 2025-07-27 05:45 | Emergency (ER) | payer MEDICAID, SELFPAY ==
--- NOTE | ~2025-07-27 | XR_ITS ---
EXAMINATION: XR CHEST CLINICAL INFORMATION: sob lung pain COMPARISON: July 19, 2025. TECHNIQUE: PA view of the chest was obtained. FINDINGS: Linear opacity left lower hemithorax. No gross, pleural effusion or pneumothorax. Cardiomediastinal silhouette size is normal. Multilevel spondylosis, thoracic spine. Metallic plate lower cervical spine no fully evaluated. Patient's large body habitus/obesity. XR/XR chest 1V IMPRESSION: Subsegmental atelectasis versus acute airspace disease, left lower lung lobe/lingula. Electronically signed by: Manuel Bang MD 07/27/2025 08:07 AM [facility]
[2025-07-27 05:51] VITALS: BP 127/75; BP 158/89; PULSE 67; PULSE 70; RESP 20; TEMP 36.4; O2SAT 98; O2SAT 99; BMI 37.1
--- NOTE | 2025-07-27 07:40 | ED.GENADULT ---
HPI - General Adult General Chief complaint: Back Pain/Injury Stated complaint: muscles spasms was previously trmt not working Time Seen by Provider: 07/27/25 09:47 Source: patient and family Mode of arrival: ambulatory Limitations: no limitations History of Present Illness ED Provider: THOMAS Gil HPI narrative: Chief Complaint: ?Shortness of breath and right-sided chest discomfort.? History of Present Illness: 60-year-old male with several-week history of progressive shortness of breath and right-sided chest discomfort. He describes similar episodes in the past that typically self-resolve. He was evaluated in this ED last , when a chest X-ray was normal and he was discharged on prednisone. Since that visit, symptoms have worsened. He is here today specifically to have his issue looked into further and to seek diagnostic clarification. He is agreeable to a full cardiac workup, including laboratory testing to rule out pulmonary embolism (D-dimer). He is not requesting pain medication at this time. Related Data Home Medications ?Medication ?Instructions ?Recorded ?Confirmed amlodipine 10 mg tablet 10 mg PO DAILY 12/02/22 10/25/24 atorvastatin 20 mg tablet 20 mg PO BEDTIME 12/02/22 10/25/24 gabapentin 100 mg capsule 100 mg PO BEDTIME 12/02/22 10/25/24 hydrochlorothiazide 25 mg tablet 25 mg PO DAILY 12/02/22 10/25/24 lisinopril 30 mg tablet 30 mg PO DAILY 12/02/22 10/25/24 terbinafine HCl 250 mg tablet 250 mg PO DAILY 05/25/24 10/25/24 Previous Rx's ?Medication ?Instructions ?Recorded celecoxib 200 mg capsule (Celebrex) 200 mg PO BID #180 caps 07/01/24 oxycodone-acetaminophen 5 mg-325 1 tab PO Q6H PRN Pain #5 tabs 10/25/24 mg tablet amoxicillin 875 mg-potassium 1 tab PO BID 7 days #14 tabs 11/09/24 clavulanate 125 mg tablet prednisone 20 mg tablet 20 mg PO BID 5 days #10 tabs 07/19/25 albuterol sulfate 90 mcg/actuation 2 inh inhalation Q4-6H PRN 07/27/25 breath activated powder inhaler shortness of breath or wheezing #1 ea doxycycline hyclate 100 mg capsule 100 mg PO BID 10 days #20 caps 07/27/25 prednisone 20 mg tablet 40 mg (2 x 20 mg) PO DAILY 5 days 07/27/25 #10 tabs Allergies Allergy/AdvReac Type Severity Reaction Status Date / Time SEAFOOD Allergy Unknown ANAPHYLAXIS Uncoded 07/27/25 05:59 Review of Systems Review of Systems: Yes all other systems are reviewed and are negative [facility] Past Medical History Attestation statement: The following information was validated with the patient. 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 Oriented X3.? No acute distress.? Head: Normocephalic, atraumatic, no step-offs or deformities Eyes: Pupils equal, round and reactive to light.? ENT: Pharynx normal.? Neck: Normal inspection.? Neck supple.? CVS: Normal heart rate and rhythm.? Pulses normal.? Respiratory: No respiratory distress.? Breath sounds normal.? Abdomen: Soft and nontender.? Skin: Skin warm and dry.? Normal skin color.? Normal skin turgor.? Extremities: No lower extremity edema.? No calf ttp. 5/5 strength to bilateral upper and lower extremities Neuro: Oriented X 3.? No motor deficit.? No sensory deficit. CN 2-12 intact Vital Signs: Vital Signs - 24 hr 07/27/25 05:51 07/27/25 10:14 Temperature 97.5 F Pulse Rate 70 54 Respiratory Rate 20 16 Blood Pressure 127/75 117/68 Pulse Oximetry 98 97 Oxygen Delivery Method Room Air Room Air BMI result Body Mass Index 37.1 vss Course Course Course Narrative: This is an RME done by THOMAS Gil: Additional HPI, ROS, PE not included below will be deferred to primary provider. Male presents with a few weeks of lung pain on the right he reports he has been having this intermittently for years however the last few weeks have been particularly bad. He reports he is having trouble with deep breathing. He is also having right shoulder pain. Nothing seems to make it better or worse. He reports he has been seen here before recently within the last week or so he had an x-ray that prescribe him prednisone however this does not seem to be helping. He reports something is off. On exam he is well-appearing no acute distress Reevaluation(s) Reevaluation #1: CBC unremarkable. Chemistry with no acute findings needing intervention troponin negative proBNP negative D-dimer negative. Chest x-ray was subsegmental atelectasis versus acute airspace disease left lower lung lobe/lingula will treat for pneumonia at this time based off patient's symptoms and timeframe. Educated patient on diagnosis and treatment plan, answered all question, patient verbalizes understanding. At this time patient will be discharged home, advised to return with new or worsening symptoms. Educated on worrisome signs and symptoms and when to return. At this time I feel comfortable discharge home. Time: 10:12 Medical Decision Making Medical Decision Making [facility] Narrative: 60-year-old male with progressive dyspnea and right-sided chest discomfort; prior normal CXR, now for further evaluation. Problem #1: Dyspnea and Right-Sided Chest Discomfort ? Rule out cardiac/pulmonary etiology Assessment: Worsening symptoms despite prior normal chest X-ray and prednisone course. Need to exclude emergent causes such as acute coronary syndrome and pulmonary embolism. Plan: Full cardiac workup (labs, ECG, additional testing per protocol). Order D-dimer to evaluate for pulmonary embolism. Symptom-directed care; patient declines pain medication at this time. Reassess following results and adjust management accordingly. Differential Diagnosis Differential Diagnoses: The differential diagnosis associated with the presentation includes Acute coronary syndrome (unstable angina, myocardial infarction) Pulmonary embolism Pneumonia or other infectious process Pericarditis Musculoskeletal chest wall pain (e.g., costochondritis) Exacerbation of underlying pulmonary disease (COPD, asthma) Medication side effect (recent prednisone) Anxiety or panic disorder Other less common causes (e.g., aortic dissection, pleural effusion) Admission/Observation Consideration of admission/observation: Escalation of care including admission/observation considered Lab Data [facility] Lab Attestation statement: I reviewed the patient's lab results. 07/27/25 07:51 07/27/25 07:51 Labs: Lab Results 07/27/25 Range/Units 07:51 WBC 7.1 (4.8-10.8) X10*3/uL RBC 5.35 (4.60-5.80) X10*6/uL Hgb 16.3 (14.0-18.0) g/dl Hct 48.4 (42.0-52.0) % MCV 90.5 (80.0-98.0) fL MCH 30.5 (27.0-33.0) pg MCHC 33.7 (31.0-36.0) g/dl RDW 13.1 (11.0-16.0) % Plt Count 244 (160-400) X10*3/uL MPV 8.7 L (9.4-12.4) fL Immature Gran % (Auto) 1.1 H (0.0-0.4) % Neut % (Auto) 52.2 (45-73) % Lymph % (Auto) 34.5 (20-40) % [place] % (Auto) 9.1 (2-11) % Eos % (Auto) 2.1 (0-4) % Baso % (Auto) 1.0 (0-2) % Lymph # (Auto) 2.5 (1.2-4.9) X10*3/uL [place] # (Auto) 0.7 (0.1-1.2) X10*3/uL Eos # (Auto) 0.2 (0.0-0.4) X10*3/uL Baso # (Auto) 0.1 (0.0-0.2) X10*3/uL Abs Immat Gran (auto) 0.08 H (0.00-0.03) X10*3/uL Absolute Neuts (auto) 3.7 (2.0-8.3) x10*3/uL Absolute Nucleated RBC 0.000 (0.0-0.012) X10*3/uL Nucleated RBC % (auto) 0.0 (0.0-0.2) /100WBC D-Dimer High Sensitivty < 150 NG/ML Sodium 140 (135-145) mmol/L Potassium 4.3 (3.3-5.1) mmol/L Chloride 104 (96-108) mmol/L Carbon Dioxide 31 H (22-29) mmol/L Anion Gap 9 L (12-20) BUN 22 H (9-16) mg/dL Creatinine 0.92 (0.5-1.4) mg/dL Estim Creat Clear Calc 95.4 Estimated GFR > 60 Random Glucose 107 (60-115) mg/dL Calcium 9.1 (8.4-10.2) mg/dL Magnesium 2.3 (1.6-2.6) mg/dL Total Bilirubin 1.0 (0.0-1.0) mg/dL AST 24 (5-37) U/L ALT 36 (0-40) U/L Alkaline Phosphatase 78 (39-117) U/L Troponin I High Sens < 2.7 (<3.5-35.0) ng/L NT-Pro-B Natriuret Pep 20.6 (<300) pg/mL Total Protein 6.8 (6.5-8.0) g/dL Albumin 4.3 (3.5-5.0) g/dL Independent Interpretation I performed an independent interpretation of an: EKG (Test Reason : back pain Blood Pressure : */* mmHG Vent. Rate : 53 BPM Atrial Rate : 53 BPM P-R Int : 162 ms QRS Dur : 84 ms QT Int : 446 ms P-R-T Axes : 47 -5 10 degrees QTcB Int : 418 ms Sinus bradycardia Otherwise normal ECG No previous ECGs available) and Plain X-Ray (XR/XR chest 1V IMPRESSION: Subsegmental atelectasis versus acute airspace disease, left lower lung lobe/lingula.) Radiology Impression Discussion of test interpretation with radiology: I have reviewed the radiologist's reading. External Record Review External record reviewed: Inpatient record, Office record, Outpatient record, Prior outpatient labs, Prior outpatient radiology, Primary care record and Outside ED record Critical Care Time Critical Care Time Critical Care Time: No Discharge Plan Discharge Clinical Impression: Pneumonia Patient Disposition: Home, Self-Care Instructions: Pneumonia (ED) Additional Instructions: Take your medications as prescribed. If you were prescribed antibiotics today, it is important that you take your medication to their entirety, do not skip any doses, do not finish them early. Follow-up with your primary care provider this week. Return to the emergency department with new or worsening symptoms. Such as fevers, chills, chest pain, shortness of breath, nausea, vomiting, dizziness, headache, vision changes, lethargy In case of emergency call 911 Prescriptions: New doxycycline hyclate 100 mg capsule 100 mg PO BID 10 Days Qty: 20 0RF albuterol sulfate 90 mcg/actuation aerosol powdr breath activated 2 inh inhalation Q4-6H PRN (Reason: shortness of breath or wheezing) Qty: 1 0RF prednisone 20 mg tablet 40 mg PO DAILY 5 Days Qty: 10 0RF No Action prednisone 20 mg tablet 20 mg PO BID 5 Days Qty: 10 0RF oxycodone-acetaminophen 5-325 mg Tablet 1 tab PO Q6H PRN (Reason: Pain) Qty: 5 0RF Rx Instructions: Partial Fill upon patient request. hydrochlorothiazide 25 mg tablet 25 mg PO DAILY gabapentin 100 mg capsule 100 mg PO BEDTIME amlodipine 10 mg tablet 10 mg PO DAILY atorvastatin 20 mg tablet 20 mg PO BEDTIME lisinopril 30 mg tablet 30 mg PO DAILY celecoxib [Celebrex] 200 mg capsule 200 mg PO BID Qty: 180 2RF terbinafine HCl 250 mg tablet 250 mg PO DAILY amoxicillin-pot clavulanate 875-125 mg tablet 1 tab PO BID 7 Days Qty: 14 0RF Referrals: Peggy Pitt MD [Primary Care Provider, Internal Medicine] Print Language: Albanian
[2025-07-27 07:55] LABS: MANUAL DIFF FLAG NO
[2025-07-27 07:56] LABS: Hematocrit 48.4 % (42.0-52.0); Hemoglobin 16.3 g/dl (14.0-18.0); Imm Gran Abs Auto 0.08 X10*3/uL (0.00-0.03); Imm Gran Pct Auto 1.1 % (0.0-0.4); Lymphocytes Absolute Auto 2.5 X10*3/uL (1.2-4.9); Mean Corpuscular HGB Conc 33.7 g/dl (31.0-36.0); Mean Corpuscular Hemoglobin 30.5 pg (27.0-33.0); Mean Corpuscular Volume 90.5 fL (80.0-98.0); NRBC Abs Auto 0.000 X10*3/uL (0.0-0.012); NRBC Pct Auto 0.0 /100WBC (0.0-0.2); Platelet Count 244 X10*3/uL (160-400); Red Blood Count 5.35 X10*6/uL (4.60-5.80); White Blood Count 7.1 X10*3/uL (4.8-10.8)
[2025-07-27 08:10] LABS: Alanine Aminotransferase 36 U/L (0-40); Albumin Level 4.3 g/dL (3.5-5.0); Alkaline Phosphatase 78 U/L (39-117); Anion Gap 9 (12-20); Aspartate Amino Transferase 24 U/L (5-37); Blood Urea Nitrogen 22 mg/dL (9-16); Calcium 9.1 mg/dL (8.4-10.2); Carbon Dioxide 31 mmol/L (22-29); Chloride 104 mmol/L (96-108); Creatinine Clr Calc Pharmacy 95.4; Estimated Glomerular Filt Rate > 60; Magnesium 2.3 mg/dL (1.6-2.6); Potassium 4.3 mmol/L (3.3-5.1); Sodium 140 mmol/L (135-145); Total Protein 6.8 g/dL (6.5-8.0)
[2025-07-27 08:16] LABS: D Dimer High Sensitivity < 150 NG/ML
[2025-07-27 08:20] LABS: NT Pro B Type Natriuretic Pept 20.6 pg/mL (<300); Troponin-I High Sensitivity < 2.7 ng/L (<3.5-35.0)
--- NOTE | 2025-07-27 10:10 | ECG_ITS ---
Test Reason : back pain Blood Pressure : */* mmHG Vent. Rate : 53 BPM Atrial Rate : 53 BPM P-R Int : 162 ms QRS Dur : 84 ms QT Int : 446 ms P-R-T Axes : 47 -5 10 degrees QTcB Int : 418 ms Sinus bradycardia Otherwise normal ECG No previous ECGs available Referred By: Alex Gil Electronically Signed By: HANNAH LEMOS MD
[2025-07-27 10:14] VITALS: BP 117/68; PULSE 54; RESP 16; O2SAT 97
[2025-07-27 10:42] VITALS: BP 117/68; PULSE 54; RESP 16; TEMP 36.6; O2SAT 97
== END 2025-07-27 10:45 | disposition home or self-care (01) ==
PROVIDERS: Physician Assistant; Emergency Provider Emergency Medicine; PCP Internal Medicine
DX: J18.9 Pneumonia, unspecified organism (principal); R06.02 Shortness of breath; Z79.899 Other long term (current) drug therapy
CPT/HCPCS: 36415; 71045; 80053; 83735; 83880; 84484; 85025; 85379; 93005; 99283; 99284

== ENCOUNTER → 2025-07-27 07:42 | Outpatient (BNV) | payer MEDICAID, SELFPAY | PROVIDERS: Visit Provider Radiology Diagnostic Radiology | DX: R07.89 Other chest pain (principal); R06.02 Shortness of breath | CPT/HCPCS: 71045 ==

== ENCOUNTER → 2025-07-27 10:10 | Outpatient (BNV) | payer MEDICAID, SELFPAY | PROVIDERS: Emergency Provider Emergency Medicine; PCP Internal Medicine; Visit Provider Internal Medicine Cardiovascular Disease | DX: R00.1 Bradycardia, unspecified (principal) | CPT/HCPCS: 93010 ==